=== PATIENT | female | born 1955 | race Two or more races ===

== ENCOUNTER 2016-05-15 12:12 | Emergency (ER) | payer MEDICAID ==
[~2016-05-15] VITALS: Ht 165.1 cm; Wt 59.0 kg
[~2016-05-15 12:12] MED LIST: BENZ0.5T6 GT; DEPAKOTE; MIRT15TA; QUET400T; TEMA30CA5 OR
[2016-05-15 13:03] LABS: Basophils # (auto) 0.1 uL; Basophils % (auto) 0.6 % (0.0-2.0); Eosinophils # (auto) 0.1 uL; Eosinophils % (auto) 1.1 % (0.0-7.0); Hematocrit 41.4 % (36.0-46.0); Hemoglobin 12.9 g/dL (12.2-16.2); Lymphocytes % (auto) 20.7 % (10.0-50.0); Mean Corpuscular Hemoglobin 29.1 pg (28.0-32.0); Mean Corpuscular Hgb Conc. 31.1 g/dL (32.0-36.0); Mean Corpuscular Volume 93.5 fL (80.0-100.0); Monocytes # (auto) 0.6 uL; Monocytes % (auto) 6.1 % (0.0-12.0); Neutrophils % (auto) 71.5 % (37.0-80.0); Platelet Count (auto) 394 10^3/uL (140-450); Red Cell Distribution Width 14.7 % (11.6-16.0); White Blood Cell 9.8 10^3/uL (4.4-10.8)
[2016-05-15 13:12] LABS: Albumin 3.6 g/dL (3.4-5.0); BUN/Creatinine Ratio 21.5; Bilirubin, Total 0.2 mg/dL (0.2-1.0); Calcium 9.9 mg/dL (8.5-10.1); Potassium 3.9 mmol/L (3.5-5.1)
[2016-05-15] MEDS ORDERED: SODIUM CHLORIDE 0.9% 500 ML IVB ONE (15:43)
[2016-05-15] MEDS ORDERED: KETOROLAC TROMETH 30 MG/ML 1ML VIAL IV ONE (15:45)
[2016-05-15] MEDS ORDERED: ALPRAZolam 0.5 MG TAB PO ONE (15:45)
[2016-05-15 16:38] LABS: Magnesium 2.6 mg/dL (1.6-2.6)
[2016-05-15 17:27] LABS: INR 0.99 (0.9-1.15); Prothrombin Time 10.2 sec (9.37-12.3)
[2016-05-15 19:14] VITALS: BP 136/78
== END 2016-05-15 20:46 | disposition home or self-care (01) ==
LOC: EDBD 12:12 → ER 12:16
DX: F41.9 Anxiety disorder, unspecified (principal); M54.5 Low back pain; F17.210 Nicotine dependence, cigarettes, uncomplicated; I25.2 Old myocardial infarction; Z79.899 Other long term (current) drug therapy; Z88.0 Allergy status to penicillin
CPT/HCPCS: 36415; 74176; 80053; 82150; 83690; 83735; 84484; 85025; 85610; 85730; 93005; 94761; 96361; 96374; 99285; J1885

== ENCOUNTER 2016-12-16 07:51 | Emergency (ER) | payer MEDICAID ==
[~2016-12-16] VITALS: Ht 160 cm; Wt 46.3 kg
[2016-12-16] MEDS ORDERED: SODIUM CHLORIDE 0.9% 1,000 ML IVB ONE (08:03)
[2016-12-16] MEDS ORDERED: LORazepam 2MG/ML-1ML VIAL IV ONE (08:15)
[2016-12-16] MEDS ORDERED: OLANZapine 5 MG TAB PO ONE ×2 (08:15→17:15)
[2016-12-16 09:38] LABS: Basophils # (auto) 0.1 uL; Basophils % (auto) 0.7 % (0.0-2.0); Eosinophils # (auto) 0 uL; Eosinophils % (auto) 0.2 % (0.0-7.0); Hematocrit 41.3 % (36.0-46.0); Hemoglobin 13.7 g/dL (12.2-16.2); Lymphocytes # (auto) 1.8 uL; Lymphocytes % (auto) 14.9 % (10.0-50.0); Mean Corpuscular Hemoglobin 31.8 pg (28.0-32.0); Mean Corpuscular Hgb Conc. 33.2 g/dL (32.0-36.0); Mean Corpuscular Volume 95.7 fL (80.0-100.0); Mean Platelet Volume 7.8 fL (7.4-10.4); Monocytes # (auto) 0.9 uL; Monocytes % (auto) 7.7 % (0.0-12.0); Neutrophils # (auto) 9.3 uL; Neutrophils % (auto) 76.5 % (37.0-80.0); Nucleated Red Blood Cells % 0.1 %; Platelet Count (auto) 345 10^3/uL (140-450); Red Cell Distribution Width 14.5 % (11.6-16.0); White Blood Cell 12.2 10^3/uL (4.4-10.8)
[2016-12-16 10:02] LABS: BUN/Creatinine Ratio 23.4; Calcium 9.8 mg/dL (8.5-10.1); Magnesium 2.5 mg/dL (1.6-2.6); Potassium 4.1 mmol/L (3.5-5.1)
[2016-12-16 10:05] LABS: Bilirubin, Total 0.3 mg/dL (0.2-1.0)
[2016-12-16 10:55] LABS: Urine RBC None Seen /hpf (0 - 4)
[2016-12-16 11:14] LABS: Urine Bilirubin Negative (Negative); Urine Blood Negative /uL (Negative); Urine Color Yellow (Yellow); Urine Glucose Normal (Normal); Urine Hyaline Cast FEW /lpf (0 - 2); Urine Ketone Negative (Negative); Urine Mucus FEW (None Seen); Urine Nitrite Negative (Negative); Urine pH 5.5 (5.0-8.0)
[2016-12-16] MEDS ORDERED: ACETAMINOPHEN 325 MG TAB PO ONE (17:15)
[2016-12-17 09:30] VITALS: BP 127/73
== END 2016-12-17 09:38 | disposition home or self-care (01) ==
LOC: EDBD 07:51 → ER 07:51
DX: R41.82 Altered mental status, unspecified (principal); G92 Toxic encephalopathy; F24 Shared psychotic disorder; F20.9 Schizophrenia, unspecified
CPT/HCPCS: 36415; 70450; 71010; 80053; 80307; 81001; 83735; 84443; 85025; 93005; 96361; 96374; 99285; J2060; J7030

== ENCOUNTER 2017-06-16 15:59 | Inpatient (IN) | payer MEDICAID ==
[~2017-06-16] VITALS: Ht 165.1 cm; Wt 65.5 kg
[2017-06-16 17:46] LABS: Albumin 2.2 g/dL (3.4-5.0); Amylase 22 U/L (25-115); Anion Gap 8 (5-15); Blood Urea Nitrogen 29 mg/dL (7-18); Carbon Dioxide 27 mmol/L (21-32); Chloride 100 mmol/L (98-107); Glucose 98 mg/dL (74-106); Lipase 64 U/L (73-393); Magnesium 2.5 mg/dL (1.6-2.6); Potassium 3.8 mmol/L (3.5-5.1); Sodium 135 mmol/L (136-145)
[2017-06-16 17:48] LABS: Alanine Aminotransferase 124 U/L (13-56); Aspartate Aminotransferase 187 U/L (15-37); BUN/Creatinine Ratio 31.9; GFR African American 81 mL/min; GFR Non-African American 67 mL/min
[2017-06-16 17:54] LABS: Alkaline Phosphatase 165 U/L (45-117); Bilirubin, Total 0.3 mg/dL (0.2-1.0)
[2017-06-16 18:30] LABS: INR 1.04 (0.9-1.15); Partial Thromboplastin Time 29.6 sec (22.64-33.71); Prothrombin Time 11.3 sec (9.37-12.3)
[2017-06-16 19:29] LABS: Hematocrit 37.2 % (36.0-46.0); Hemoglobin 12.8 g/dL (12.2-16.2); Mean Corpuscular Hemoglobin 31.6 pg (28.0-32.0); Mean Corpuscular Hgb Conc. 34.4 g/dL (32.0-36.0); Mean Corpuscular Volume 91.8 fL (80.0-100.0); Platelet Count (auto) 303 10^3/uL (140-450); Red Blood Cells 4.06 10^6/uL (4.0-5.20); Red Cell Distribution Width 14.7 % (11.8-14.3)
[2017-06-16 19:44] LABS: Basophils % (manual) 0 (0.0-2.0); Eosinophils % (manual) 0 (0-7)
[2017-06-16 19:45] LABS: Blast Cells 0; Promyelocytes % 0; Reactive Lymphocytes 0
[2017-06-16 21:30] LABS: Band Neutrophils % (manual) 2; Lymphocytes % (manual) 11 (10.0-50.0); Monocytes % (manual) 6 (0-12); Myelocytes % 9
[2017-06-16 21:31] LABS: Metamyelocytes % 12
[2017-06-17] MEDS ORDERED: NALBUPHINE HCL 10 MG/1ml INJECTION IV ONE (04:00)
[2017-06-17] MEDS ORDERED: ONDANSETRON HCL 4 MG/2 ML VIAL IV ONE (04:00)
[2017-06-17] MEDS ORDERED: FAMOTIDINE (10MG/ML) 2ML VL IV ONE (04:00)
[2017-06-17 05:17] LABS: Urine Bacteria NONE SEEN /hpf (None Seen); Urine Blood Negative /uL (Negative); Urine Hyaline Cast FEW /lpf (0 - 2); Urine Mucus FEW (None Seen); Urine Specific Gravity 1.024 (1.001-1.035); Urine WBC 2 /hpf (0 - 5)
[2017-06-17] MEDS ORDERED: SODIUM CHLORIDE 0.9% 1,000 ML IV ONE (05:45)
[2017-06-17] MEDS ORDERED: cefTRIAXone 1GM/10ml IVPUSH 10 ML IV ONE (05:45)
[2017-06-17] MEDS ORDERED: metroNIDAZOLE 500MG/100ML 100 ML IV ONE (05:45)
[2017-06-17] MEDS ORDERED: TEMAZEPAM 15 MG CAP PO PRN (06:15)
[2017-06-17] MEDS ORDERED: ONDANSETRON HCL 4 MG/2 ML VIAL IV PRN (06:15)
[2017-06-17] MEDS ORDERED: ACETAMINOPHEN 325 MG TAB PO PRN (06:15)
[2017-06-17] MEDS ORDERED: HYDROcodone-ACET 5/325MG TAB PO PRN (06:15)
[2017-06-17] MEDS ORDERED: cefTRIAXone 1GM/10ml IVPUSH 10 ML IV SCH (06:30)
[2017-06-17 06:48] LABS: Alcohol, Urine < 3.0 mg/dL (0-5); Amphetamine Screen, Urine NEGATIVE (NEGATIVE); Barbiturate Scree,Urine NEGATIVE (NEGATIVE); Benzodiazephine Screen, Urine POSITIVE (NEGATIVE); Cannabinoid Screen, Urine NEGATIVE (NEGATIVE); Cocaine Screen, Urine NEGATIVE (NEGATIVE); Opiate Scree,Urine POSITIVE (NEGATIVE); Phencyclidine Screen, Urine NEGATIVE (NEGATIVE)
[2017-06-17] MEDS: SODIUM CHLORIDE 0.9% 1,000 ML IV SCH ×2 (07:03→19:34)
[2017-06-17] MEDS ORDERED: VANCOMYCIN 1GM/250ML 250 ML IV ONE (07:15)
[2017-06-17 08:31] VITALS: BP 128/70
[2017-06-17 08:36] VITALS: BP 128/70
[2017-06-17] MEDS ORDERED: AZITHROMYCIN 500MG/ 250ML 250 ML IV SCH (10:00)
[2017-06-17] MEDS: PANTOPRAZOLE 40 MG/10 ML VIAL IV SCH (10:20)
[2017-06-17] MEDS: DOCUSATE SOD 100 MG CAP PO SCH ×2 (10:20→22:00)
[2017-06-17] MEDS: ENOXAPARIN SOD 40 MG/0.4 ML SYRINGE SC SCH (10:20)
[2017-06-17] MEDS: MORPHINE SULFATE 4 MG/ML SYR/VIAL IV PRN ×2 (12:01→20:44)
[2017-06-17 12:11] LABS: Hematocrit 36.9 % (36.0-46.0); Hemoglobin 12.4 g/dL (12.2-16.2); Mean Corpuscular Hemoglobin 30.9 pg (28.0-32.0); Mean Corpuscular Hgb Conc. 33.5 g/dL (32.0-36.0); Mean Corpuscular Volume 92.3 fL (80.0-100.0); Platelet Count (auto) 329 10^3/uL (140-450); Red Cell Distribution Width 15.1 % (11.8-14.3); White Blood Cell 23.7 10^3/uL (4.4-10.8)
[2017-06-17 12:37] LABS: Basophils % (manual) 0 (0.0-2.0); Promyelocytes % 0; Reactive Lymphocytes 0
[2017-06-17 12:43] VITALS: BP 140/78
[2017-06-17] MEDS: HYDROcodone-ACET 5/325MG TAB PO PRN (12:55)
[2017-06-17 12:57] LABS: Alanine Aminotransferase 96 U/L (13-56); Albumin 1.9 g/dL (3.4-5.0); Alkaline Phosphatase 141 U/L (45-117); Anion Gap 9 (5-15); Aspartate Aminotransferase 138 U/L (15-37); Bilirubin, Direct < 0.1 mg/dL (0-0.2); Bilirubin, Total 0.3 mg/dL (0.2-1.0); Blood Urea Nitrogen 20 mg/dL (7-18); Calcium 8.5 mg/dL (8.5-10.1); Carbon Dioxide 28 mmol/L (21-32); Chloride 102 mmol/L (98-107); Creatine Kinase IFCC 1766 U/L (26-192); GFR African American 147 mL/min; GFR Non-African American 122 mL/min; Glucose 92 mg/dL (74-106); Magnesium 2.4 mg/dL (1.6-2.6); Potassium 3.9 mmol/L (3.5-5.1); Sodium 139 mmol/L (136-145); Total Protein 6.1 g/dL (6.4-8.2)
[2017-06-17] MEDS ORDERED: metroNIDAZOLE 500MG/100ML 100 ML IV SCH (14:00)
[2017-06-17 14:53] LABS: Band Neutrophils % (manual) 9; Blast Cells 1; Eosinophils % (manual) 3 (0-7); Lymphocytes % (manual) 19 (10.0-50.0); Metamyelocytes % 6; Monocytes % (manual) 13 (0-12); Myelocytes % 11
[2017-06-17] MEDS ORDERED: MIRT15TA3 PO (15:10)
[2017-06-17] MEDS ORDERED: HYDR-4683 PO ×2 (15:10)
[2017-06-17] MEDS ORDERED: DIVA500T59 PO (15:10)
[2017-06-17] MEDS ORDERED: DIPH25CA6 PO (15:10)
[2017-06-17] MEDS ORDERED: ALPR0.254 PO (15:10)
[2017-06-17] MEDS ORDERED: HAL5T PO (15:10)
[2017-06-17] MEDS ORDERED: CYCL1TAB18 PO (15:10)
[2017-06-17] MEDS ORDERED: QUET150T2 PO (15:10)
[2017-06-17] MEDS ORDERED: TEMA30CA PO (15:10)
[2017-06-17 17:00] VITALS: BP 137/70
[2017-06-17] MEDS: TEMAZEPAM 15 MG CAP PO PRN (20:50)
[2017-06-17] MEDS ORDERED: SODIUM CHLORIDE 0.9% 2,000 ML IV ONE (21:30)
[2017-06-17 22:00] VITALS: BP 144/77
[2017-06-17] MEDS ORDERED: QUEtiapine FUMARATE 100 MG TAB PO SCH (22:00)
[2017-06-18] MEDS: SODIUM CHLORIDE 0.9% 1,000 ML IV SCH ×5 (00:30→17:10)
[2017-06-18 05:00] VITALS: BP 120/76
[2017-06-18 07:24] LABS: Hematocrit 34.3 % (36.0-46.0); Hemoglobin 11.2 g/dL (12.2-16.2); Mean Corpuscular Hemoglobin 30.6 pg (28.0-32.0); Mean Corpuscular Hgb Conc. 32.6 g/dL (32.0-36.0); Mean Corpuscular Volume 94.1 fL (80.0-100.0); Platelet Count (auto) 353 10^3/uL (140-450); Red Blood Cells 3.65 10^6/uL (4.0-5.20); Red Cell Distribution Width 15.3 % (11.8-14.3); White Blood Cell 21.6 10^3/uL (4.4-10.8)
[2017-06-18 07:35] LABS: Albumin 1.7 g/dL (3.4-5.0); Bilirubin, Total 0.2 mg/dL (0.2-1.0); Calcium 7.8 mg/dL (8.5-10.1); Potassium 3.8 mmol/L (3.5-5.1); Total Protein 5.4 g/dL (6.4-8.2)
[2017-06-18 08:15] LABS: Basophils % (manual) 0 (0.0-2.0); Blast Cells 0; Promyelocytes % 0
[2017-06-18 09:00] VITALS: BP 112/47
[2017-06-18] MEDS ORDERED: cefTRIAXone 1GM/10ml IVPUSH 10 ML IV SCH (09:00)
[2017-06-18 09:09] LABS: Band Neutrophils % (manual) 14; Eosinophils % (manual) 1 (0-7); Lymphocytes % (manual) 23 (10.0-50.0); Metamyelocytes % 7; Monocytes % (manual) 9 (0-12); Myelocytes % 7; Reactive Lymphocytes 3
[2017-06-18] MEDS: MORPHINE SULFATE 4 MG/ML SYR/VIAL IV PRN ×2 (09:56→17:18)
[2017-06-18] MEDS ORDERED: LEVOFLOXACIN 500MG 100 ML IV SCH (10:00)
[2017-06-18] MEDS: PANTOPRAZOLE 40 MG/10 ML VIAL IV SCH (10:03)
[2017-06-18] MEDS: ENOXAPARIN SOD 40 MG/0.4 ML SYRINGE SC SCH (10:06)
[2017-06-18] MEDS: DOCUSATE SOD 100 MG CAP PO SCH ×2 (10:06→22:00)
[2017-06-18] MEDS ORDERED: SODIUM CHLORIDE 0.9% 1,000 ML IV ONE (11:30)
[2017-06-18] MEDS ORDERED: VANCOMYCIN PER PHARMACY 0 MG IV SCH (12:30)
[2017-06-18] MEDS: HYDROcodone-ACET 5/325MG TAB PO PRN (12:42)
[2017-06-18 13:00] VITALS: BP 140/82
[2017-06-18] MEDS ORDERED: VANCOMYCIN 1GM/250ML 250 ML IV ONE (13:00)
[2017-06-18 17:00] VITALS: BP 147/81
[2017-06-18] MEDS ORDERED: QUEtiapine FUMARATE 100 MG TAB PO SCH ×2 (18:00)
[2017-06-18 22:00] VITALS: BP 143/80
[2017-06-19] MEDS: SODIUM CHLORIDE 0.9% 1,000 ML IV SCH ×4 (00:10→20:10)
[2017-06-19] MEDS: VANCOMYCIN 1GM/250ML 250 ML IV SCH ×3 (00:15→19:48)
[2017-06-19] MEDS: MORPHINE SULFATE 4 MG/ML SYR/VIAL IV PRN ×4 (00:33→20:49)
[2017-06-19] MEDS: TEMAZEPAM 15 MG CAP PO PRN ×2 (01:21→21:36)
[2017-06-19] MEDS: HYDROcodone-ACET 5/325MG TAB PO PRN ×3 (02:36→17:22)
[2017-06-19 05:51] VITALS: BP 132/74
[2017-06-19 06:21] LABS: INR 1.01 (0.9-1.15); Partial Thromboplastin Time 29.6 sec (22.64-33.71)
[2017-06-19 06:22] LABS: Hematocrit 34.2 % (36.0-46.0); Hemoglobin 11.3 g/dL (12.2-16.2); Mean Corpuscular Hemoglobin 30.7 pg (28.0-32.0); Mean Corpuscular Hgb Conc. 33.1 g/dL (32.0-36.0); Mean Corpuscular Volume 92.8 fL (80.0-100.0); Platelet Count (auto) 415 10^3/uL (140-450); Red Blood Cells 3.68 10^6/uL (4.0-5.20); Red Cell Distribution Width 15.3 % (11.8-14.3); White Blood Cell 19.2 10^3/uL (4.4-10.8)
[2017-06-19 06:31] LABS: Basophils % (manual) 0 (0.0-2.0); Eosinophils % (manual) 0 (0-7)
[2017-06-19 06:32] LABS: Blast Cells 0; Promyelocytes % 0
[2017-06-19 06:54] LABS: Alanine Aminotransferase 64 U/L (13-56); Albumin 1.8 g/dL (3.4-5.0); Alkaline Phosphatase 113 U/L (45-117); Anion Gap 6 (5-15); Aspartate Aminotransferase 50 U/L (15-37); Bilirubin, Direct < 0.1 mg/dL (0-0.2); Bilirubin, Total 0.2 mg/dL (0.2-1.0); Blood Urea Nitrogen 9 mg/dL (7-18); Calcium 7.9 mg/dL (8.5-10.1); Carbon Dioxide 29 mmol/L (21-32); Chloride 106 mmol/L (98-107); Creatine Kinase IFCC 408 U/L (26-192); GFR African American 161 mL/min; GFR Non-African American 133 mL/min; Glucose 89 mg/dL (74-106); Magnesium 1.9 mg/dL (1.6-2.6); Potassium 3.8 mmol/L (3.5-5.1); Sodium 141 mmol/L (136-145); Total Protein 5.4 g/dL (6.4-8.2)
[2017-06-19 08:00] VITALS: BP 139/79
[2017-06-19] MEDS: PANTOPRAZOLE 40 MG/10 ML VIAL IV SCH (08:21)
[2017-06-19] MEDS: ENOXAPARIN SOD 40 MG/0.4 ML SYRINGE SC SCH (08:44)
[2017-06-19] MEDS: DOCUSATE SOD 100 MG CAP PO SCH ×2 (08:44→21:36)
[2017-06-19 09:00] VITALS: BP 139/79
[2017-06-19] MEDS: LEVOFLOXACIN 500MG 100 ML IV SCH (11:22)
[2017-06-19 13:00] VITALS: BP 161/76
[2017-06-19 13:53] LABS: Monocytes % (manual) 13 (0-12)
[2017-06-19 13:55] LABS: Band Neutrophils % (manual) 8; Lymphocytes % (manual) 21 (10.0-50.0); Metamyelocytes % 5; Myelocytes % 4; Reactive Lymphocytes 1
[2017-06-19 17:00] VITALS: BP 141/82
[2017-06-19] MEDS: QUEtiapine FUMARATE 100 MG TAB PO SCH (18:18)
[2017-06-19 21:30] VITALS: BP 155/76
[2017-06-19] MEDS ORDERED: hydrALAZINE HCL 20 MG/ML VL IV PRN (23:00)
[2017-06-20] MEDS: SODIUM CHLORIDE 0.9% 1,000 ML IV SCH ×3 (03:04→13:59)
[2017-06-20] MEDS: MORPHINE SULFATE 4 MG/ML SYR/VIAL IV PRN ×3 (03:04→15:03)
[2017-06-20 05:00] VITALS: BP 150/89
[2017-06-20] MEDS: VANCOMYCIN 1GM/250ML 250 ML IV SCH (05:35)
[2017-06-20 06:45] LABS: Hemoglobin 12.1 g/dL (12.2-16.2); Red Cell Distribution Width 15.2 % (11.8-14.3)
[2017-06-20 06:49] LABS: Mean Corpuscular Hemoglobin 31.3 pg (28.0-32.0); Mean Corpuscular Hgb Conc. 33.7 g/dL (32.0-36.0); Mean Corpuscular Volume 92.7 fL (80.0-100.0); Platelet Count (auto) 502 10^3/uL (140-450); Red Blood Cells 3.88 10^6/uL (4.0-5.20); White Blood Cell 18.7 10^3/uL (4.4-10.8)
[2017-06-20 06:57] LABS: Basophils % (manual) 0 (0.0-2.0); Blast Cells 0; Promyelocytes % 0
[2017-06-20 07:23] LABS: Alanine Aminotransferase 51 U/L (13-56); Albumin 1.9 g/dL (3.4-5.0); Alkaline Phosphatase 102 U/L (45-117); Anion Gap 7 (5-15); Aspartate Aminotransferase 34 U/L (15-37); BUN/Creatinine Ratio 14.6; Bilirubin, Direct < 0.1 mg/dL (0-0.2); Bilirubin, Total 0.2 mg/dL (0.2-1.0); Blood Urea Nitrogen 7 mg/dL (7-18); Calcium 8.3 mg/dL (8.5-10.1); Carbon Dioxide 29 mmol/L (21-32); Chloride 104 mmol/L (98-107); Creatine Kinase IFCC 205 U/L (26-192); GFR African American 169 mL/min; GFR Non-African American 139 mL/min; Glucose 110 mg/dL (74-106); Potassium 3.7 mmol/L (3.5-5.1); Sodium 140 mmol/L (136-145); Total Protein 5.7 g/dL (6.4-8.2)
[2017-06-20 08:00] VITALS: BP 153/79
[2017-06-20 08:10] LABS: Band Neutrophils % (manual) 9; Eosinophils % (manual) 2 (0-7); Lymphocytes % (manual) 22 (10.0-50.0); Metamyelocytes % 4; Monocytes % (manual) 8 (0-12); Myelocytes % 4
[2017-06-20 08:11] LABS: Reactive Lymphocytes 1
[2017-06-20 09:00] VITALS: BP 153/79
[2017-06-20] MEDS: ENOXAPARIN SOD 40 MG/0.4 ML SYRINGE SC SCH (09:03)
[2017-06-20] MEDS: PANTOPRAZOLE 40 MG/10 ML VIAL IV SCH (09:04)
[2017-06-20] MEDS: DOCUSATE SOD 100 MG CAP PO SCH (09:04)
[2017-06-20] MEDS: LEVOFLOXACIN 500MG 100 ML IV SCH (10:51)
[2017-06-20] MEDS: HYDROcodone-ACET 5/325MG TAB PO PRN ×2 (11:01→17:14)
[2017-06-20 13:00] VITALS: BP 151/85
[2017-06-20] MEDS ORDERED: VANCOMYCIN 1GM/250ML 250 ML IV SCH (14:00)
[2017-06-20 17:00] VITALS: BP 136/80
[2017-06-20] MEDS: QUEtiapine FUMARATE 100 MG TAB PO SCH (18:04)
== END 2017-06-20 21:15 | DRG 720 ==
LOC: ER 15:59 → EDBD 15:59 → OVERFLOW 16:00 → WEST WING 06-17 08:06
PROVIDERS: ADMIT Nurse Practitioner; ATTEND Internal Medicine
DX: A41.1 Sepsis due to other specified staphylococcus (principal); E43 Unspecified severe protein-calorie malnutrition; J15.29 Pneumonia due to other staphylococcus; M62.82 Rhabdomyolysis; E86.0 Dehydration; J44.0 Chronic obstructive pulmonary disease with (acute) lower respiratory infection; F20.9 Schizophrenia, unspecified; G47.00 Insomnia, unspecified; J98.11 Atelectasis; F31.30 Bipolar disorder, current episode depressed, mild or moderate severity, unspecified; K59.00 Constipation, unspecified; X58.XXXA Exposure to other specified factors, initial encounter; T42.6X5A Adverse effect of other antiepileptic and sedative-hypnotic drugs, initial encounter; R09.02 Hypoxemia; Z86.73 Personal history of transient ischemic attack (TIA), and cerebral infarction without residual deficits; Z91.81 History of falling; Z88.0 Allergy status to penicillin; Y92.89 Other specified places as the place of occurrence of the external cause; Y93.89 Activity, other specified; Y99.8 Other external cause status
CPT/HCPCS: 36415; 36600; 71045; 74176; 76705; 80048; 80053; 80076; 80202; 80307; 81001; 82150; 82550; 82805; 83605; 83690; 83735; 84484; 85007; 85027; 85060; 85610; 85730; 87040; 87077; 87186; 93005; 96365; 96375; 97116; 97163; 97530; C9113; J1956; J2405; J3490

== ENCOUNTER 2017-11-28 00:54 | Emergency (ER) | payer MEDICAID ==
[~2017-11-28] VITALS: Ht 165.1 cm; Wt 65.8 kg
[~2017-11-28 00:54] MED LIST changes: +ALPR0.254 PO; -BENZ0.5T6 GT; +CYCL1TAB18 PO; -DEPAKOTE; +DIPH25CA6 PO; +DIVA500T59 PO; +HAL5T PO; +HYDR-4683 PO; -MIRT15TA; +MIRT15TA3 PO; +QUET150T2 PO; -QUET400T; +TEMA30CA PO; -TEMA30CA5 OR
[2017-11-28 00:59] VITALS: BP 111/65
== END 2017-11-28 06:07 | disposition home or self-care (01) ==
LOC: EDBD 00:54 → ER 01:02
DX: S93.401A Sprain of unspecified ligament of right ankle, initial encounter (principal); J40 Bronchitis, not specified as acute or chronic; T43.291A Poisoning by other antidepressants, accidental (unintentional), initial encounter; J44.9 Chronic obstructive pulmonary disease, unspecified; Z88.0 Allergy status to penicillin; Z86.73 Personal history of transient ischemic attack (TIA), and cerebral infarction without residual deficits; W01.0XXA Fall on same level from slipping, tripping and stumbling without subsequent striking against object, initial encounter; Y93.01 Activity, walking, marching and hiking; Y92.090 Kitchen in other non-institutional residence as the place of occurrence of the external cause; Y99.8 Other external cause status; Y92.9 Unspecified place or not applicable
CPT/HCPCS: 73610

== ENCOUNTER 2017-12-19 13:38 | Emergency (ER) | payer MEDICAID ==
[~2017-12-19] VITALS: Ht 167.6 cm; Wt 65.8 kg
[2017-12-19] MEDS ORDERED: SODIUM CHLORIDE 0.9% 1,000 ML IVB ONE (14:20)
[2017-12-19 15:12] LABS: Basophils # (auto) 0.1 uL; Basophils % (auto) 0.9 % (0.0-2.0); Eosinophils # (auto) 0 uL; Eosinophils % (auto) 0.1 % (0.0-7.0); Hematocrit 46.7 % (36.0-46.0); Hemoglobin 15.6 g/dL (12.2-16.2); Lymphocytes # (auto) 1.3 uL; Lymphocytes % (auto) 15.4 % (10.0-50.0); Mean Corpuscular Hemoglobin 30.4 pg (28.0-32.0); Mean Corpuscular Hgb Conc. 33.5 g/dL (32.0-36.0); Mean Corpuscular Volume 90.8 fL (80.0-100.0); Monocytes # (auto) 0.3 uL; Neutrophils % (auto) 80.6 % (37.0-80.0); Platelet Count (auto) 337 10^3/uL (140-450); Red Blood Cells 5.14 10^6/uL (4.0-5.20); White Blood Cell 8.7 10^3/uL (4.4-10.8)
[2017-12-19 15:54] LABS: Anion Gap 8 (5-15); Blood Urea Nitrogen 25 mg/dL (7-18); Carbon Dioxide 29 mmol/L (21-32); Chloride 107 mmol/L (98-107); Potassium 4.1 mmol/L (3.5-5.1); Sodium 144 mmol/L (136-145)
[2017-12-19 15:57] LABS: Alanine Aminotransferase 17 U/L (13-56); Aspartate Aminotransferase 13 U/L (15-37); BUN/Creatinine Ratio 36.8; GFR African American 112 mL/min; GFR Non-African American 93 mL/min; Glucose 112 mg/dL (74-106)
[2017-12-19 16:03] LABS: Alkaline Phosphatase 115 U/L (45-117); Bilirubin, Total 0.5 mg/dL (0.2-1.0); Total Protein 8.2 g/dL (6.4-8.2)
[2017-12-19 16:14] LABS: Blood Alcohol < 3.0 mg/dL (0-5)
[2017-12-19 16:40] LABS: Salicylate 3.9 mg/dL (2.8-20.0)
[2017-12-19 16:41] LABS: Acetaminophen < 2.0 ug/mL (10-30)
[2017-12-19 17:42] LABS: Urine Bacteria NONE SEEN /hpf (None Seen); Urine Blood Negative /uL (Negative); Urine Mucus FEW (None Seen); Urine Specific Gravity 1.027 (1.001-1.035); Urine WBC 1 /hpf (0 - 5)
[2017-12-19 17:51] LABS: Alcohol, Urine < 3.0 mg/dL (0-5); Amphetamine Screen, Urine NEGATIVE (NEGATIVE); Barbiturate Scree,Urine NEGATIVE (NEGATIVE); Benzodiazephine Screen, Urine POSITIVE (NEGATIVE); Cocaine Screen, Urine NEGATIVE (NEGATIVE); Opiate Scree,Urine NEGATIVE (NEGATIVE); Phencyclidine Screen, Urine NEGATIVE (NEGATIVE)
[2017-12-19 17:57] LABS: Cannabinoid Screen, Urine NEGATIVE (NEGATIVE)
[2017-12-19] MEDS ORDERED: ONDANSETRON HCL 4 MG/2 ML VIAL ONE (21:15)
[2017-12-19] MEDS ORDERED: ONDANSETRON HCL 4 MG/2 ML VIAL IV ONE (23:15)
[2017-12-19] MEDS ORDERED: KETOROLAC TROMETH 30 MG/ML 1ML VIAL IV ONE (23:15)
[2017-12-20] MEDS ORDERED: KETOROLAC TROMETH 30 MG/ML 1ML VIAL IV ONE (08:00)
[2017-12-20] MEDS ORDERED: LORazepam 0.5 MG TAB PO PRN (08:00)
[2017-12-20 19:10] VITALS: BP 144/61
== END 2017-12-20 19:20 | disposition short-term general hospital (02) ==
LOC: EDBD 13:38 → ER 13:38
DX: T42.4X2A Poisoning by benzodiazepines, intentional self-harm, initial encounter (principal); F41.9 Anxiety disorder, unspecified; F31.9 Bipolar disorder, unspecified; J44.9 Chronic obstructive pulmonary disease, unspecified; I10 Essential (primary) hypertension; Y92.9 Unspecified place or not applicable
CPT/HCPCS: 36415; 71045; 80053; 80307; 80320; 80329; 81001; 83735; 85025; 93005; 94761; 96374; 96375; 96376; 99285; J1885; J2405; J7030

== ENCOUNTER 2018-02-06 15:54 | Emergency (ER) | payer MEDICAID ==
[~2018-02-06] VITALS: Ht 157.5 cm; Wt 54.4 kg
[2018-02-06 16:44] LABS: Basophils # (auto) 0.1 uL; Basophils % (auto) 1.2 % (0.0-2.0); Eosinophils # (auto) 0.2 uL; Eosinophils % (auto) 2.1 % (0.0-7.0); Hematocrit 44.7 % (36.0-46.0); Hemoglobin 14.7 g/dL (12.2-16.2); Lymphocytes % (auto) 25.5 % (10.0-50.0); Mean Corpuscular Hemoglobin 29.5 pg (28.0-32.0); Mean Corpuscular Volume 89.6 fL (80.0-100.0); Monocytes # (auto) 0.8 uL; Monocytes % (auto) 6.5 % (0.0-12.0); Neutrophils # (auto) 7.5 uL; Neutrophils % (auto) 64.7 % (37.0-80.0); Platelet Count (auto) 348 10^3/uL (140-450); Red Blood Cells 4.99 10^6/uL (4.0-5.20); Red Cell Distribution Width 13.2 % (11.8-14.3); White Blood Cell 11.6 10^3/uL (4.4-10.8)
[2018-02-06 16:50] VITALS: BP 163/115
[2018-02-06 17:08] LABS: Alanine Aminotransferase 16 U/L (13-56); Albumin 3.7 g/dL (3.4-5.0); Anion Gap 12 (5-15); Aspartate Aminotransferase 15 U/L (15-37); BUN/Creatinine Ratio 23.9; Blood Urea Nitrogen 26 mg/dL (7-18); Calcium 9.5 mg/dL (8.5-10.1); Carbon Dioxide 22 mmol/L (21-32); Chloride 101 mmol/L (98-107); GFR African American 65 mL/min; GFR Non-African American 54 mL/min; Glucose 81 mg/dL (74-106); Sodium 135 mmol/L (136-145)
[2018-02-06 17:13] LABS: Alkaline Phosphatase 98 U/L (45-117); Bilirubin, Total 0.4 mg/dL (0.2-1.0); Total Protein 7.4 g/dL (6.4-8.2)
[2018-02-06 17:26] LABS: Urine Bacteria NONE SEEN /hpf (None Seen); Urine Blood Negative /uL (Negative); Urine Hyaline Cast MANY /lpf (0 - 2); Urine Mucus FEW (None Seen); Urine Specific Gravity 1.024 (1.001-1.035); Urine WBC 4 /hpf (0 - 5)
== END 2018-02-06 18:08 | disposition home or self-care (01) ==
LOC: EDBD 15:54 → ER 16:00
DX: R53.1 Weakness (principal); F41.9 Anxiety disorder, unspecified; R11.2 Nausea with vomiting, unspecified; R19.7 Diarrhea, unspecified; J44.9 Chronic obstructive pulmonary disease, unspecified; I10 Essential (primary) hypertension; M06.9 Rheumatoid arthritis, unspecified; F17.210 Nicotine dependence, cigarettes, uncomplicated; Z88.0 Allergy status to penicillin; Z88.6 Allergy status to analgesic agent; Z79.899 Other long term (current) drug therapy
CPT/HCPCS: 36415; 80053; 81001; 84484; 85025; 93005

== ENCOUNTER 2018-02-08 17:28 | Emergency (ER) | payer MEDICAID ==
[~2018-02-08] VITALS: Ht 165.1 cm; Wt 54.4 kg
[2018-02-08 17:45] VITALS: BP 134/80
[2018-02-08 18:20] LABS: Basophils # (auto) 0.1 uL; Basophils % (auto) 1.2 % (0.0-2.0); Eosinophils # (auto) 0.3 uL; Eosinophils % (auto) 4.1 % (0.0-7.0); Hemoglobin 15.1 g/dL (12.2-16.2); Lymphocytes # (auto) 3.5 uL; Lymphocytes % (auto) 40.8 % (10.0-50.0); Mean Corpuscular Hemoglobin 29.4 pg (28.0-32.0); Mean Corpuscular Hgb Conc. 32.8 g/dL (32.0-36.0); Mean Corpuscular Volume 89.7 fL (80.0-100.0); Monocytes # (auto) 0.7 uL; Monocytes % (auto) 8.7 % (0.0-12.0); Neutrophils # (auto) 3.8 uL; Neutrophils % (auto) 45.2 % (37.0-80.0); Nucleated Red Blood Cells % 0.1 %; Platelet Count (auto) 351 10^3/uL (140-450); Red Blood Cells 5.13 10^6/uL (4.0-5.20); Red Cell Distribution Width 13.4 % (11.8-14.3); White Blood Cell 8.4 10^3/uL (4.4-10.8)
[2018-02-08 18:36] LABS: Alanine Aminotransferase 17 U/L (13-56); Albumin 3.9 g/dL (3.4-5.0); Anion Gap 7 (5-15); Aspartate Aminotransferase 14 U/L (15-37); BUN/Creatinine Ratio 25.6; Blood Urea Nitrogen 22 mg/dL (7-18); Calcium 9.4 mg/dL (8.5-10.1); Carbon Dioxide 27 mmol/L (21-32); Chloride 103 mmol/L (98-107); GFR African American 86 mL/min; GFR Non-African American 71 mL/min; Glucose 91 mg/dL (74-106); Potassium 4.1 mmol/L (3.5-5.1); Sodium 137 mmol/L (136-145)
[2018-02-08 18:41] LABS: Alkaline Phosphatase 96 U/L (45-117); Bilirubin, Total 0.3 mg/dL (0.2-1.0); Total Protein 7.6 g/dL (6.4-8.2)
== END 2018-02-08 20:03 | disposition left against medical advice (07) ==
LOC: EDBD 17:28 → ER 17:28
DX: F41.9 Anxiety disorder, unspecified (principal); Z53.21 Procedure and treatment not carried out due to patient leaving prior to being seen by health care provider
CPT/HCPCS: 36415; 80053; 83735; 84484; 85025; 93005

== ENCOUNTER 2018-07-20 14:33 | Inpatient (IN) | payer MEDICAID | END 2018-07-22 19:45 | disposition home or self-care (01) | LOC: TELE-WESTW 07-21 14:02 → ER 14:33 → TELE 18:20 | DX: I12.9 Hypertensive chronic kidney disease with stage 1 through stage 4 chronic kidney disease, or unspecified chronic kidney disease (principal); I21.4 Non-ST elevation (NSTEMI) myocardial infarction; N17.0 Acute kidney failure with tubular necrosis; R65.10 Systemic inflammatory response syndrome (SIRS) of non-infectious origin without acute organ dysfunction; N18.4 Chronic kidney disease, stage 4 (severe); F31.30 Bipolar disorder, current episode depressed, mild or moderate severity, unspecified; Z91.19 Patient's noncompliance with other medical treatment and regimen; F15.10 Other stimulant abuse, uncomplicated; F41.9 Anxiety disorder, unspecified ==

== ENCOUNTER 2018-10-07 14:00 | Inpatient (IN) | payer MEDICAID ==
[~2018-10-07] VITALS: Ht 165.1 cm; Wt 61.4 kg
[2018-10-07] VITALS (19 sets, daily range): BP systolic 82–158; BP diastolic 47–74
[~2018-10-07 14:00] MED LIST changes: -DIPH25CA6 PO; +GABA100C9 PO; -HAL5T PO; +HYDR-3682 PO; -MIRT15TA3 PO; -QUET150T2 PO; +QUET25TA37 PO; -TEMA30CA PO
[2018-10-07] MEDS ORDERED: KETOROLAC TROMETH 15 mg/ml 1ML VL IV ONE (14:15)
[2018-10-07 15:21] LABS: Albumin 1.6 g/dL (3.4-5.0); Calcium 8.6 mg/dL (8.5-10.1); Magnesium 1.8 mg/dL (1.6-2.6); Potassium 3.6 mmol/L (3.5-5.1)
[2018-10-07 15:25] LABS: BUN/Creatinine Ratio 41.4; Bilirubin, Total 0.4 mg/dL (0.2-1.0); Total Protein 5.8 g/dL (6.4-8.2)
[2018-10-07 15:26] LABS: Hematocrit 27.5 % (36.0-46.0); Hemoglobin 9.2 g/dL (12.2-16.2); Mean Corpuscular Hemoglobin 30.6 pg (28.0-32.0); Mean Corpuscular Hgb Conc. 33.5 g/dL (32.0-36.0); Mean Corpuscular Volume 91.4 fL (80.0-100.0); Platelet Count (auto) 354 10^3/uL (140-450); Red Blood Cells 3.01 10^6/uL (4.0-5.20); Red Cell Distribution Width 15.7 % (11.8-14.3); White Blood Cell 23.1 10^3/uL (4.4-10.8)
[2018-10-07 15:35] LABS: Basophils % (manual) 0 (0.0-2.0); Blast Cells 0; Eosinophils % (manual) 0 (0-7); Promyelocytes % 0; Reactive Lymphocytes 0
[2018-10-07] MEDS ORDERED: VANCOMYCIN PER PHARMACY 0 MG IV SCH (16:15)
[2018-10-07] MEDS ORDERED: ONDANSETRON HCL 4 MG/2 ML VIAL IV PRN (16:15)
[2018-10-07] MEDS ORDERED: VANCOMYCIN 1GM/250ML 250 ML IV ONE (16:15)
[2018-10-07] MEDS ORDERED: MORPHINE SULF INJ 2 MG/ML SYRINGE 1ML IV PRN (16:15)
[2018-10-07] MEDS ORDERED: SODIUM CHLORIDE 0.9% 2,000 ML IV ONE ×2 (16:15→20:00)
[2018-10-07] MEDS ORDERED: metroNIDAZOLE 500MG/100ML 100 ML IV ONE (16:15)
[2018-10-07] MEDS ORDERED: NITROGLYCERIN 0.4 MG SL TAB SL PRN (16:15)
[2018-10-07] MEDS ORDERED: IOHEXOL 300 MG/ML 100ML BOTTLE IJ ONE (16:18)
[2018-10-07] MEDS: MEROPENEM 1GM IVPB 100 ML IV SCH (17:00)
--- NOTE | 2018-10-07 17:12 | NUR ---
PAGED DR Flip MERCEDES/LOW BP PATIENT LOW BLOOD PRESSURE, ASYMPTOMATIC - CONVERSING APPROPRIATELY WITH THIS NURSE AND STAFF. AWAITING RESPONSE.
[2018-10-07] MEDS: HYDROmorphone HCL 2 MG/ML VL IV PRN (17:45)
--- NOTE | 2018-10-07 17:45 | NUR ---
Opening Shift Note Assumed care of patient, awake and alert. No S/S of distress/SOB or pain. Instructed on POC and to call for assist PRN, will continue to monitor for changes Q1hr and PRN. Fall and safety precautions in place.
[2018-10-07] MEDS ORDERED: NOREPINEPHRINE 8 MG/250ML KIT 250 ML IV ONE (18:11)
--- NOTE | 2018-10-07 18:30 | NUR ---
CONTACT DR ESPINOSA UPDATED ON MOST CURRENT ABD/PELVIC CT WITH CONTRAST RESULTS. ORDERS FOR GI CONSULT AND NGT TO LCS RECEIVED. PATIENT CONTINUE NPO. ORDERS WILL BE CARRIED OUT AND ENDORSED TO ONCOMING CAN CONVEYOR FEEDER RN.
[2018-10-07 18:34] LABS: Band Neutrophils % (manual) 1; Lymphocytes % (manual) 4 (10.0-50.0); Metamyelocytes % 1; Monocytes % (manual) 5 (0-12); Myelocytes % 2
--- NOTE | 2018-10-07 19:45 | NUR ---
open note report received from nakul oh. assumed care of female pt. pt is sitting up in bed watching tv. pt is alert and oriented. pt has iv to L wrist 20g, R forearm 20g both are patent, flushed with ns, no ss of redness or swelling. pt abdomen is firm and round. pt states she is having pain in her stomach and that it is very tender. pt has Optifoam on R hip buttock area. L foot is swollen and bruised. pt stated she broke it when she tripped over her couch because of a dog. she said her big toe nail fell off after it happen. pt missing L foot big toe nail. day rn stated pt refused espinoza and ngt. day rn stated that intubation order was discussed with pt for airway protection. bed in lowest position, wheels locked hob 30* side rails up x2. pt educated air conditioning coil assembler light and to use if any assistance is needed. call light within reach, pt in view of rn station. pt verbalized understanding. will continue to care for and monitor.
--- NOTE | 2018-10-07 19:51 | NUR ---
CONTACT HOSPITALIST DR MERCEDES NOTIFIED OF PATIENT'S CURRENT STATUS, HYPOTENSION, ABD/PELVIC CT AND DISCUSSION WITH DR ESPINOSA. DR MERCEDES ALSO AWARE OF PATIENT'S REFUSAL FOR KEARNEY CATHETER AND NGT. DR MERCEDES REQUESTING PATIENT TO BE INTUBATED WITH PULMONARY CONSULT AND NEPHROLOGY CONSULT FOR NO URINE OUTPUT. PATIENT WAS REQUESTING ATIVAN FOR ANXIETY, DR MERCEDES REFUSED STATING "THIS PATIENT IS GOING TO , SHE IS CRITICAL IN SEPTIC SHOCK". ENDORSED CONTINUED CARE TO MACHINE II ENGRAVER RN. CHARGE NURSE AWARE.
[2018-10-07] MEDS: NOREPINEPHRINE 8 MG/250ML KIT 250 ML IV SCH (19:58)
[2018-10-07] MEDS: D5W/SOD CHL 0.45% 1,000 ML IV SCH (20:00)
--- NOTE | 2018-10-07 20:00 | NUR ---
REPORT AND CARE ENDORSED TO RONNIE MALCOLM
[2018-10-07] MEDS ORDERED: ETOMIDATE (2MG/ML) 20ML VIAL IV ONE (20:12)
[2018-10-07] MEDS ORDERED: ROCURONIUM 10MG/ML 10ML VIAL IV ONE (20:12)
[2018-10-07] MEDS ORDERED: SUCCINYLCHOLINE CHLORIDE 20 MG/ML 10ML VIAL IV ONE (20:13)
--- NOTE | 2018-10-07 20:15 | NUR ---
cath, ngt/ogt, intubation pt stated she previously did not want a catheter do to memories from her past. the order for catheter was explained to her and she agreed to have one. pt also agreed to have ngt/ogt placed. pt stated she was informed that Dr. Treva Hale says she needed to be intubated and she agreed to be intubated.
--- NOTE | 2018-10-07 20:35 | NUR ---
intubation rt at bedside, bagmask at bedside. CARLOS Cruz at bedside. @2034 etomidate administered to pt as ordered by CARLOS Cruz. @2037 succinylcholine was administered according to CARLOS cruz ordered dose. @2038 CARLOS cruz intubated pt.
--- NOTE | 2018-10-07 20:40 | NUR ---
Espinoza catheter insertion Patient assessed and determined to be in need of espinoza catheter. Order obtained from MD. Patient educated on catheter and reason for insertion. All questions answered. Espinoza catheter inserted with clean & sterile technique. Patient sedated and tolerated well.
--- NOTE | 2018-10-07 20:55 | NUR ---
Oral gastric tube insertion Patient previously educated on need for OG tube. All questions addressed. @ 2054 OGT inserted per MD order. Placement verified by aspiration of stomach contents, auscultation and chest xray.
--- NOTE | 2018-10-07 21:00 | NUR ---
call wayne w/abg results Dr. Hernandez on phone stating to call him with abg results and he will give vent orders if needed.
[2018-10-07] MEDS ORDERED: PROPOFOL 100 ML IV ONE (21:11)
--- NOTE | 2018-10-07 21:11 | NUR ---
Dr. Ketty Hale on phone stat orders received, call with results per
--- NOTE | 2018-10-07 22:00 | NUR ---
Dr bledsoe call spoke with Dr. Flip Hale,new orders received. will call back with results per Dr. Flip Hale
--- NOTE | 2018-10-07 22:06 | NUR ---
Dr. Flip Hale paged Dr. Flip Hael paged for orders for pt, awaiting call back
[2018-10-07] MEDS: fentaNYL Drip 2500mCg/250mlNS 250 ML IV SCH (22:16)
[2018-10-07] MEDS ORDERED: fentaNYL Drip 2500mCg/250mlNS 250 ML IV ONE (22:23)
[2018-10-07 22:31] LABS: Eosinophils # (auto) 0.1 uL
--- NOTE | 2018-10-07 22:35 | NUR ---
Left message w/ Dr. Treva Hale exchange left message w/ exchange to inform DR. Flip Hale that Dr. Morocho is aware of consult and pt status. awaiting call back.
[2018-10-07 22:39] LABS: Basophils # (auto) 0 uL; Basophils % (auto) 0.1 % (0.0-2.0); Eosinophils % (auto) 0.7 % (0.0-7.0); Hematocrit 28.9 % (36.0-46.0); Hemoglobin 9.2 g/dL (12.2-16.2); Lymphocytes # (auto) 1.7 uL; Lymphocytes % (auto) 8.7 % (10.0-50.0); Mean Corpuscular Hemoglobin 30.6 pg (28.0-32.0); Mean Corpuscular Hgb Conc. 31.8 g/dL (32.0-36.0); Mean Corpuscular Volume 96.2 fL (80.0-100.0); Monocytes # (auto) 2.4 uL; Monocytes % (auto) 12.5 % (0.0-12.0); Neutrophils # (auto) 15.1 uL; Nucleated Red Blood Cells % 0.1 %; Platelet Count (auto) 336 10^3/uL (140-450); Red Cell Distribution Width 16.3 % (11.8-14.3); White Blood Cell 19.4 10^3/uL (4.4-10.8)
[2018-10-07 22:40] LABS: Albumin 1.5 g/dL (3.4-5.0); Magnesium 1.8 mg/dL (1.6-2.6); Potassium 3.3 mmol/L (3.5-5.1)
[2018-10-07 22:43] LABS: BUN/Creatinine Ratio 38.8; Bilirubin, Total 0.4 mg/dL (0.2-1.0); Total Protein 5.7 g/dL (6.4-8.2)
--- NOTE | 2018-10-07 23:00 | NUR ---
called back Dr. Flip Hale called back and notified that Dr. Montesinos is aware of consult and that orders were given to rn on day shift by dr montesinos. Flip Hale said "ok, call me if there is an emergency or if you need anything for the pt."
[2018-10-07] MEDS: MIDAZOLAM DRIP 50 mg/50mL 50 ML IV SCH (23:58)
[2018-10-08] VITALS (104 sets, daily range): BP systolic 70–146; BP diastolic 27–87
[2018-10-08] MEDS: MEROPENEM 1GM IVPB 100 ML IV SCH ×3 (01:00→17:18)
--- NOTE | 2018-10-08 01:00 | NUR ---
pt sedated and intubated no ss of distress noted at this time. pt tolerates oral care and turns. will continue to care for and monitor
[2018-10-08] MEDS ORDERED: PROPOFOL 100 ML IV ONE ×2 (01:46→06:53)
[2018-10-08] MEDS: D5W/SOD CHL 0.45% 1,000 ML IV SCH ×3 (02:15→19:56)
--- NOTE | 2018-10-08 03:00 | NUR ---
no ss of distress noted at this time will continue to care for and monitor pt.
[2018-10-08 03:55] LABS: Urine WBC None Seen /hpf (0 - 5)
[2018-10-08 03:59] LABS: Basophils # (auto) 0 uL; Basophils % (auto) 0.2 % (0.0-2.0); Eosinophils # (auto) 0.1 uL; Eosinophils % (auto) 0.7 % (0.0-7.0); Hematocrit 27.8 % (36.0-46.0); Hemoglobin 9.3 g/dL (12.2-16.2); Lymphocytes # (auto) 1.5 uL; Lymphocytes % (auto) 7.7 % (10.0-50.0); Mean Corpuscular Hemoglobin 30.6 pg (28.0-32.0); Mean Corpuscular Hgb Conc. 33.6 g/dL (32.0-36.0); Monocytes # (auto) 2.5 uL; Monocytes % (auto) 12.7 % (0.0-12.0); Neutrophils # (auto) 15.5 uL; Neutrophils % (auto) 78.7 % (37.0-80.0); Platelet Count (auto) 366 10^3/uL (140-450); Red Blood Cells 3.05 10^6/uL (4.0-5.20); Red Cell Distribution Width 15.5 % (11.8-14.3); White Blood Cell 19.7 10^3/uL (4.4-10.8)
[2018-10-08 04:18] LABS: Potassium 3.2 mmol/L (3.5-5.1)
[2018-10-08 04:25] LABS: Urine Bacteria NONE SEEN /hpf (None Seen); Urine Blood Negative /uL (Negative); Urine Hyaline Cast FEW /lpf (0 - 2)
[2018-10-08 04:26] LABS: Albumin 1.7 g/dL (3.4-5.0); BUN/Creatinine Ratio 37.7; Bilirubin, Total 0.4 mg/dL (0.2-1.0); Calcium 8.5 mg/dL (8.5-10.1)
[2018-10-08 04:50] LABS: Alcohol, Urine < 3.0 mg/dL (0-5); Amphetamine Screen, Urine NEGATIVE (NEGATIVE); Barbiturate Scree,Urine NEGATIVE (NEGATIVE); Benzodiazephine Screen, Urine POSITIVE (NEGATIVE); Cannabinoid Screen, Urine NEGATIVE (NEGATIVE); Cocaine Screen, Urine NEGATIVE (NEGATIVE); Opiate Scree,Urine NEGATIVE (NEGATIVE); Phencyclidine Screen, Urine NEGATIVE (NEGATIVE)
--- NOTE | 2018-10-08 05:00 | NUR ---
hygiene partial bed bath given, partial lenins changed. Optifoam applied to sacrum for preventative measures. suction canisters and tubing changed. pt tolerates care. will continue to care for and monitor
[2018-10-08] MEDS: VANCOMYCIN 500 MG in D5W 5% 100 ML IV SCH ×2 (05:56→19:47)
--- NOTE | 2018-10-08 07:18 | NUR ---
REPORT AND CARE ENDORSED TO RONNIE Link
[2018-10-08] MEDS ORDERED: PROPOFOL 100 ML IV SCH (07:19)
--- NOTE | 2018-10-08 07:30 | NUR ---
Respiratory note: TITRATED FIO2 TO 30% POST ABG.
--- NOTE | 2018-10-08 08:00 | NUR ---
Pulmonary clarification Dr. Hernandez called and clarified if he is taking consults at this time as it was unclear in report. stated he is covering for archery equipment repairer at this time. He will covering archery equipment repairer but archery equipment repairer to be clarified with Dr. Hale.
--- NOTE | 2018-10-08 08:20 | NUR ---
Family updated Attempted to contact family, friend listed as miladis Francisco stated patient does have 3 children but are unavailable as 1 son lives far away in [place], the other is homeless and other is in a rehab facility in [place]. Francisco stating she has her mother that lives in [place] and is currently aware she is hospitalized, Francisco to obtain number and callback.
[2018-10-08] MEDS: PROPOFOL 100 ML IV SCH ×2 (09:29→19:48)
--- NOTE | 2018-10-08 09:30 | NUR ---
SURGICAL CONSULT DR. ESPINOSA AT BEDSIDE. UDPATED ON PATIENTS STATUS. PATIENT ABD AT THIS TIME IS SOFT, PUFFY WITH HYPOACTIVE BOWEL SOUNDS, FLATUS PRESENT. OG TO LCS. AWARE OF K LEVEL THIS A.M. SEE NEW ORDERS.
[2018-10-08] MEDS ORDERED: PANTOPRAZOLE 40 MG/10 ML VIAL INJ IV SCH (10:00)
--- NOTE | 2018-10-08 10:30 | NUR ---
GI CONSULT DR. JERNIGAN AT BEDSIDE. MD UPDATED ON PATIENT STATUS. PER MD NO PROCEDURES TO BE PERFORMED AT THIS TIME.
[2018-10-08] MEDS ORDERED: TPN PER PHARMACY 0 ML IV SCH (11:15)
[2018-10-08 11:27] LABS: Magnesium 1.9 mg/dL (1.6-2.6); Phosphorus 2.9 mg/dL (2.5-4.90)
[2018-10-08 11:40] LABS: INR 1.01 (0.9-1.15); Partial Thromboplastin Time 25.4 sec (23.64-32.05)
--- NOTE | 2018-10-08 13:00 | NUR ---
WOUND CARE NOTE: IN TO SEE PATIENT AT THIS TIME PER WOUND CARE CONSULT REQUEST. PATIENT WAS NOTED UPON ADMIT TO HAVE SKIN INTEGRITY ISSUES. WOUND PHOTOS TAKEN AT THAT TIME BY BEDSIDE NURSE FOR REFERENCE. PATIENT IS INTUBATED, SEDATED. CURRENT FINESSE SCORE IS 9. PATIENT ADMITTED TO [facility] WITH DIAGNOSIS OF POSSIBLE BOWEL PERFORATION. PATIENT NOTED TO HAVE RIGHT HIP DTI, THAT HAS OPEN BLISTER. APPLIED THERAHONEY, OPTIFOAM GENTLE DRESSING. APPLIED OPTIFOAM GENTLE SACRAL DRESSING TO UPPER SACRUM PREVENTATIVE. RIGHT FOOT IS NOTED TO HAVE 2 ECCHYMOTIC AREA TO ANTERIOR FOOT AND LATERAL ANKLE. ANTERIOR ANKLE HAS AN INTACT DTI NOTED. LEFT ALL OPEN TO AIR. NO OTHER SKIN INTEGRITY ISSUES NOTED AT THIS TIME. RECOMMEND: FREQUENT TURN SCHEDULE Q 2 HOURS, PRN CONDITION PERMITS, WITH PRESSURE REDISTRIBUTION USING PILLOWS/WEDGES, BID/PRN APPLICATION WITH MOISTURE BARRIER CREAM, OPTIFOAM GENTLE SACRAL DRESSING PREVENTATIVE, EOD/PRN DRESSING CHANGE TO RIGHT HIP WOUND, DIETARY CONSULT FOR WOUNDS, SKIN/WOUND CARE PLAN, CONTINUED MONITORING BY WOUND CARE TEAM. Addendum: 10/08/18 at 1610 by Es Howard RN Amended: Links added.
[2018-10-08] MEDS: POTASSIUM CHL 20MEQ/100ML 100 ML IV SCH ×2 (14:14→15:50)
--- NOTE | 2018-10-08 14:30 | NUR ---
REPORT GIVEN TO NURSE KAYLA UPDATED ON PATIENT STATUS, CURRENT VS STABLE. PLAN OF CARE REVIEWED. AWAITING DR. MERCEDES TO MAKE ROUNDS.
--- NOTE | 2018-10-08 14:35 | NUR ---
ASSUMED CARE OF PATIENT AFTER RECEIVEING REPORT FROM RUY TRUJILLO.
--- NOTE | 2018-10-08 15:00 | NUR ---
DR Flip MERCEDES VISIT ET EXAMINES PATIENT - ORDERS RECEIVED.
[2018-10-08] MEDS: MIDAZOLAM DRIP 50 mg/50mL 50 ML IV SCH ×2 (15:50→19:54)
--- NOTE | 2018-10-08 16:00 | NUR ---
DR MERCEDES VISITS ET EXAMINES PATIENT - ORDERS RECEIVED.
--- NOTE | 2018-10-08 16:20 | NUR ---
PATIENT'S SISTER PHONES - UPDATED ON PATIENT CONDITION - VERBALIZES UNDERSTANDING. CONSENT FOR PICC LINE OBTAINED OVER PHONE WITH WITNESS.
[2018-10-08] MEDS ORDERED: LIDOCAINE 1% (LOCAL ANESTH.) PF 5ml SDV ID ONE (17:45)
--- NOTE | 2018-10-08 17:45 | NUR ---
PICC line placement Patient/Patient significant other educated on need for PICC line placement by primary RN. All risks and benefits explained and all questions and concerns addressed prior to procedure. Noted past medical history and allergies with no contraindications. INR and Plt counts within acceptable range. 5 fr PICC line inserted via right brachial vein using [employer] US and Tip Location System. Sterile technique with maximum barrier precautions utilized. Blood return obtained from each of the three lumens and each flushed easily with NS using proper technique. PICC secured with Stat-lock; biodisc and occlusive dressing applied. Stat portable chest x-ray obtained for PICC tip placement. *Baseline Arm Circumference 29 cm. *Internal Length 40 cm. *External length 0 cm. *PICC lot #[id number]. Note: EBL 3mls. Tolerated well.
--- NOTE | 2018-10-08 18:36 | NUR ---
Okay to use PICC Line X-ray completed. Primary RN notified.
[2018-10-08] MEDS: fentaNYL Drip 2500mCg/250mlNS 250 ML IV SCH (19:00)
--- NOTE | 2018-10-08 19:10 | NUR ---
DR FLORES VISITS ET EXAMINES PATIENT - NO NEW ORDERS RECEIVED.
--- NOTE | 2018-10-08 19:30 | NUR ---
CARE ENDORSED TO RADHAMES TRUJILLO.
[2018-10-08] MEDS: MAGNESIUM SULFATE 1GM/100ML 100 ML IV SCH ×2 (19:54→21:05)
[2018-10-08] MEDS: NOREPINEPHRINE 8 MG/250ML KIT 250 ML IV SCH (19:58)
[2018-10-08] MEDS ORDERED: SODIUM ACETATE IV NR ×9 (20:00)
[2018-10-08] MEDS ORDERED: POTASSIUM PHOSPHATE IV NR ×9 (20:00)
[2018-10-08] MEDS ORDERED: POTASSIUM ACETATE IV NR ×9 (20:00)
[2018-10-08] MEDS ORDERED: [UNRECOGNIZED DRUG - OTHER] IV NR ×9 (20:00)
--- NOTE | 2018-10-08 21:00 | NUR ---
SEDATION VACATION SEDATION VACATION IS NOT DONE. PATIENT OPENED EYES ON VERBAL STIMULI AND SHE IS RESTLESS. SEDATION INCREASED. Addendum: 10/08/18 at 2247 by Yasmin Newmna RN Amended: Links added.
[2018-10-08] MEDS: SODIUM CHLOR 0.9% PF (SALINE LOCK) 10ML VIAL/SYR IV SCH (21:08)
[2018-10-09] VITALS (105 sets, daily range): BP systolic 80–150; BP diastolic 44–74
[2018-10-09] MEDS ORDERED: DEXTROSE (50%) 50ML SYRG IV SCH
[2018-10-09] MEDS: PROPOFOL 100 ML IV SCH ×4 (00:12→18:19)
[2018-10-09] MEDS: MIDAZOLAM DRIP 50 mg/50mL 50 ML IV SCH ×2 (00:12→23:58)
[2018-10-09] MEDS: ACCU-CHEK COMFORT CURVE STRIP VI SCH ×4 (00:24→18:19)
[2018-10-09] MEDS: MEROPENEM 1GM IVPB 100 ML IV SCH ×2 (00:25→10:18)
[2018-10-09] MEDS: fentaNYL Drip 2500mCg/250mlNS 250 ML IV SCH (03:42)
[2018-10-09] MEDS: NOREPINEPHRINE 8 MG/250ML KIT 250 ML IV SCH (03:43)
[2018-10-09 04:07] LABS: Hematocrit 25.3 % (36.0-46.0); Hemoglobin 8.6 g/dL (12.2-16.2); Mean Corpuscular Hemoglobin 31.3 pg (28.0-32.0); Mean Corpuscular Hgb Conc. 33.8 g/dL (32.0-36.0); Mean Corpuscular Volume 92.5 fL (80.0-100.0); Platelet Count (auto) 361 10^3/uL (140-450); Red Blood Cells 2.74 10^6/uL (4.0-5.20); Red Cell Distribution Width 15.5 % (11.8-14.3); White Blood Cell 18.9 10^3/uL (4.4-10.8)
[2018-10-09 04:27] LABS: Albumin 1.3 g/dL (3.4-5.0); BUN/Creatinine Ratio 20.8; Bilirubin, Total 0.4 mg/dL (0.2-1.0); Calcium 8.5 mg/dL (8.5-10.1); Magnesium 2.7 mg/dL (1.6-2.6); Phosphorus 3.7 mg/dL (2.5-4.90); Pre Albumin 6.3 mg/dL (20.0-40.0); Total Protein 5.5 g/dL (6.4-8.2)
[2018-10-09 04:32] LABS: Band Neutrophils % (manual) 0; Basophils % (manual) 0 (0.0-2.0); Blast Cells 0; Eosinophils % (manual) 0 (0-7); Metamyelocytes % 0; Myelocytes % 0; Promyelocytes % 0; Reactive Lymphocytes 0
[2018-10-09 05:22] LABS: Lymphocytes % (manual) 15 (10.0-50.0); Monocytes % (manual) 4 (0-12)
[2018-10-09] MEDS: VANCOMYCIN 500 MG in D5W 5% 100 ML IV SCH (05:44)
[2018-10-09] MEDS: InsuLIN REG 1unit/0.01ml Soln (100units/ml) SC SCH ×3 (05:48→12:00)
--- NOTE | 2018-10-09 07:35 | NUR ---
NOTIFIED PER RADIOLOGIST OF FRACTURED LEFT FOOT RESULT FROM XRAY - CALL PLACED TO DR Flip MERCEDES.
--- NOTE | 2018-10-09 09:00 | NUR ---
SEDATION VACATION HELD - PATIENT RESPONSIVE TO TOUCH ET VERBAL STIMULI. Addendum: 10/09/18 at 1541 by Peggy Durán RN Amended: Links added.
--- NOTE | 2018-10-09 09:06 | NUR ---
DR FLORES PHONES - GIVEN ABG RESULTS - NO ORDERS RECEIVED.
[2018-10-09] MEDS: ENOXAPARIN SOD 40 MG/0.4 ML SYRINGE SC SCH (10:18)
[2018-10-09] MEDS: SODIUM CHLOR 0.9% PF (SALINE LOCK) 10ML VIAL/SYR IV SCH ×2 (10:18→22:00)
[2018-10-09] MEDS: FAMOTIDINE (10MG/ML) 2ML VL IV SCH (10:18)
--- NOTE | 2018-10-09 11:29 | NUR ---
NUTRITION CONSULT/ASSESSMENT NOTES Please refer to link notes of nutrition screen form filed under the intervention section of the plan of care for further details. Est. Needs: 1550 kcal to 1850 kcal (25-30 kcal/kgBW), 73 gms to 92 gms pro (1.2-1.5 gms/kgBW d/t severe hypoalbuminemia). Will continue to monitor pertinent labs and reassess nutrient need prn Thank you for this consult. Addendum: 10/09/18 at [address] Amended: Links added.
--- NOTE | 2018-10-09 11:30 | NUR ---
DR MERCEDES VISITS ET EXAMINES PATIENT - INFORMED OF FRACTURE LEFT FOOT PER XRAY RESULT THIS AM - ORDER RECEIVED.
--- NOTE | 2018-10-09 11:45 | NUR ---
DR ESPINOSA VISITS ET EXAMINES PATIENT -ORDERS RECEIVED.
[2018-10-09] MEDS: VANCOMYCIN 1GM/250ML 250 ML IV SCH ×2 (12:30→23:00)
--- NOTE | 2018-10-09 14:00 | NUR ---
PATIENT'S SISTER PHONES - UPDATED ON PATIENT CONDITION ET POC - VERBALIZED UNDERSTANDING.
[2018-10-09] MEDS: D5W/SOD CHL 0.45% 1,000 ML IV SCH (16:00)
--- NOTE | 2018-10-09 18:30 | NUR ---
DR FLORES VISITS ET EXAMINES PATIENT - ORDER RECEIVED.
--- NOTE | 2018-10-09 18:45 | NUR ---
PATIENT AWAKE ET RESTLESS - DIPRIVAN INCREASED TO 50 MCG.
--- NOTE | 2018-10-09 19:00 | NUR ---
DATE FOR GASTROGRAFIN CLARIFIED WITH DR ESPINOSA - ORDER RECEIVED.
[2018-10-09] MEDS ORDERED: TPN PER PHARMACY IV NR ×7 (20:00)
[2018-10-10] VITALS (110 sets, daily range): BP systolic 76–154; BP diastolic 44–73
--- NOTE | 2018-10-10 03:17 | NUR ---
PT APPEARS TO BE RESTING IN BED NO SS OF DISTRESS NOTED AT THIS TIME. WILL CONTINUE TO CARE FOR AND MONITOR
[2018-10-10 03:50] LABS: Hematocrit 26.2 % (36.0-46.0); Hemoglobin 8.6 g/dL (12.2-16.2); Mean Corpuscular Hemoglobin 30.7 pg (28.0-32.0); Mean Corpuscular Volume 92.9 fL (80.0-100.0); Platelet Count (auto) 375 10^3/uL (140-450); Red Blood Cells 2.82 10^6/uL (4.0-5.20); Red Cell Distribution Width 15.3 % (11.8-14.3); White Blood Cell 13.5 10^3/uL (4.4-10.8)
[2018-10-10 04:03] LABS: Band Neutrophils % (manual) 0; Basophils % (manual) 0 (0.0-2.0); Blast Cells 0; Eosinophils % (manual) 0 (0-7); Metamyelocytes % 0; Myelocytes % 0; Promyelocytes % 0; Reactive Lymphocytes 0
[2018-10-10 04:23] LABS: Albumin 1.2 g/dL (3.4-5.0); Calcium 8.4 mg/dL (8.5-10.1); Magnesium 1.9 mg/dL (1.6-2.6)
[2018-10-10 04:26] LABS: Bilirubin, Total 0.3 mg/dL (0.2-1.0); Total Protein 5.3 g/dL (6.4-8.2)
[2018-10-10] MEDS: ACCU-CHEK COMFORT CURVE STRIP VI SCH ×5 (06:00→23:19)
[2018-10-10] MEDS: InsuLIN REG 1unit/0.01ml Soln (100units/ml) SC SCH ×5 (06:00→23:19)
[2018-10-10 06:30] LABS: Lymphocytes % (manual) 26 (10.0-50.0); Monocytes % (manual) 5 (0-12)
--- NOTE | 2018-10-10 07:25 | NUR ---
REPORT GIVEN , CARE TRANSFERRED TO DAY RN
--- NOTE | 2018-10-10 08:00 | NUR ---
OPEN RECEIVED REPORT FROM MRI TECH RN YUN Ramirez PATIENT RESTING IN BED ON VENTILATOR ETT 7.5 AND 22 AT THE LIP. VENT SETTINGS ARE AC 14 TV 450 FIO2 30 PEEP 5. POSITIVE GAG. SEDATED USING PROPOFOL AND VERSED. HEART RATE IN THE 80'S SBP 110-130'S ON LEVOPHED. KEARNEY FREE OF KINKS, HANGING BELOW BLADDER, DRAINING YELLOW URINE. OGT IN PLACE, AUSCULTATED AND ASPIRATED, CONNECTED TO CONTINUOUS SUCTIONING. SEE WOUND ASSESSMENT FOR MORE INFORMATION. PATIENT IN NO SIGN OF DISTRESS.
--- NOTE | 2018-10-10 09:00 | NUR ---
MD Flip LOVELACE AT [facility]. UPDATED ON PLAN OF CARE. NO NEW ORDERS RECEIVED AT THIS TIME.
[2018-10-10] MEDS: PROPOFOL 100 ML IV SCH ×3 (10:00→22:46)
--- NOTE | 2018-10-10 10:30 | NUR ---
PHONE CALL RECEIVED FROM FAMILY. ARJUN PATIENT FAMILY MEMBER CALLED REQUESTING INFORMATION. PASSWORD WAS CORRECT AND ALL QUESTIONS WERE ANSWERED AT THIS TIME.
[2018-10-10] MEDS: FAMOTIDINE (10MG/ML) 2ML VL IV SCH (10:59)
[2018-10-10] MEDS: VANCOMYCIN 1GM/250ML 250 ML IV SCH ×2 (10:59→22:47)
[2018-10-10] MEDS: ENOXAPARIN SOD 40 MG/0.4 ML SYRINGE SC SCH (10:59)
[2018-10-10] MEDS: SODIUM CHLOR 0.9% PF (SALINE LOCK) 10ML VIAL/SYR IV SCH ×2 (11:00→19:30)
[2018-10-10] MEDS: NOREPINEPHRINE 8 MG/250ML KIT 250 ML IV SCH (11:15)
[2018-10-10] MEDS: D5W/SOD CHL 0.45% 1,000 ML IV SCH ×2 (12:00→17:44)
[2018-10-10] MEDS: MEROPENEM 1GM IVPB 100 ML IV SCH ×2 (14:00→18:56)
--- NOTE | 2018-10-10 15:00 | NUR ---
MD JERNIGAN AT BEDSIDE. GI MD JERNIGAN AT BEDSIDE. UPDATED ON PLAN OF CARE FOR PATIENT. ORDERS RECEIVED.
[2018-10-10] MEDS: MIDAZOLAM DRIP 50 mg/50mL 50 ML IV SCH ×2 (17:43→22:45)
--- NOTE | 2018-10-10 19:30 | NUR ---
REPORT RECEIVED, ASSUMED CARE.
[2018-10-10] MEDS ORDERED: TPN PER PHARMACY IV NR ×8 (20:00)
[2018-10-10] MEDS: fentaNYL Drip 2500mCg/250mlNS 250 ML IV SCH (22:16)
[2018-10-11] VITALS (104 sets, daily range): BP systolic 75–148; BP diastolic 42–92
[2018-10-11] MEDS: MEROPENEM 1GM IVPB 100 ML IV SCH ×3 (01:20→17:04)
[2018-10-11] MEDS: D5W/SOD CHL 0.45% 1,000 ML IV SCH ×2 (01:20→15:00)
[2018-10-11 04:45] LABS: Albumin 1.2 g/dL (3.4-5.0); Calcium 8.5 mg/dL (8.5-10.1); Magnesium 1.8 mg/dL (1.6-2.6); Potassium 3.8 mmol/L (3.5-5.1)
[2018-10-11 04:49] LABS: BUN/Creatinine Ratio 30.6; Bilirubin, Total 0.2 mg/dL (0.2-1.0); Phosphorus 2.7 mg/dL (2.5-4.90); Total Protein 5.4 g/dL (6.4-8.2)
[2018-10-11] MEDS: InsuLIN REG 1unit/0.01ml Soln (100units/ml) SC SCH ×4 (06:00→23:57)
[2018-10-11] MEDS: MIDAZOLAM DRIP 50 mg/50mL 50 ML IV SCH ×4 (06:26→23:52)
[2018-10-11] MEDS: ACCU-CHEK COMFORT CURVE STRIP VI SCH ×4 (06:27→23:57)
[2018-10-11] MEDS: PROPOFOL 100 ML IV SCH ×3 (07:29→23:53)
[2018-10-11] MEDS: fentaNYL Drip 2500mCg/250mlNS 250 ML IV SCH (07:30)
[2018-10-11] MEDS ORDERED: GASTROGRAFIN 120 ML SOL ONE (07:35)
--- NOTE | 2018-10-11 09:05 | NUR ---
RT NOTE PT TRANSPORTED TO CT AT 0845 FOR BOWEL SCAN. TRANSPORT VIA AMBUBAG 15L PLACED ONTO CT VENT FOR DURATION OF SCAN TRANSPORTED BACK TO ROOM AND PLACED ON BEDSIDE VENT W/O INCIDENT. RN AND COMPLIANCE INTERN AT BEDSIDE WITH RT FOR TRANSPORT. WILL CONTINUE TO MONITOR RT STUDENT NESS AREVALO
[2018-10-11] MEDS: ENOXAPARIN SOD 40 MG/0.4 ML SYRINGE SC SCH (09:45)
[2018-10-11] MEDS: SODIUM CHLOR 0.9% PF (SALINE LOCK) 10ML VIAL/SYR IV SCH ×2 (09:45→22:00)
[2018-10-11] MEDS: FAMOTIDINE (10MG/ML) 2ML VL IV SCH (09:45)
[2018-10-11] MEDS: VANCOMYCIN 750 MG in D5W 5% 250 ML IV SCH ×2 (11:30→23:18)
--- NOTE | 2018-10-11 13:11 | NUR ---
Resumed care at 0700. Orders reviewed and ongoing assessments being done. Remains intubated and sedated. Have increased sedation since early am. Awake and able to follow simple direction and shift her own body weight. Admitted for possible diverticulitis perforation. Increased sedation for comfort. Dr. Espinal, surgeon rounded at [address] scan of the abdomen/pelvis with a Gastrografin enema. Was escorted to the radiology department by Cirilo TRUJILLO at 0843 and returned to room at 0925 without incident. Passed large amount of contrast with fecal matter. Total bed change required. Maintaining skin clean and dry and applying skin barrier cream. Notified Dr. Espinal at [address] scan had not been read yet. Just now contacted the radiology department, Dr. Dillon in procedures and has not been able to read image. Per radiology staff, brought to Dr. Dillon's attention. Titrating Levophed gtt for hemodynamic stability as appropriate. Infusing via PICC line to right upper arm. Dr. Flip Hale rounded at [address] Norman rounded at 1150. Continue current plan of care until Dr. Espinal determines of she is a surgical candidate. Received call from Graciela (mother) and updated her on plan of care.
[2018-10-11] MEDS: NOREPINEPHRINE 8 MG/250ML KIT 250 ML IV SCH (15:00)
--- NOTE | 2018-10-11 15:00 | NUR ---
Nutrition Follow-up Notes Wt.: 62.4 kg Pt was intubated sedated with propofol @ 8.175 ml/hr providing 216 kcals from fats with no family by bedside. per records pt s/p Gastrografin study this am. pt continues to be NPO with PN support @ 58 ml/hr providing 1470 kcals and 70 gm proteins 1190 NCP. pt with adequate PN support as it meets 91-108% kcals and 76-95% proteins with propofol on board Est. Needs: 1550 kcal to 1850 kcal (25-30 kcal/kgBW), 73 gms to 92 gms pro (1.2-1.5 gms/kgBW d/t severe hypoalbuminemia). Will continue to monitor pertinent labs and reassess nutrient need prn Labs: GLU 130 H, ALB 1.2 L, Skin: Bay scale 12, high risk, DTI to ankle and hip per sales representative printing supplies. refer to WC notes for details GI: Pt has no BM reported with 275 ml of gastric drainage per sales representative printing supplies. PES: Altered nutrition related lab values r/t acute/chronic medical condition aeb hyperglycemia, low Cr, elev. Mg, LFTs and severe hypoalbuminemia Increase nutrient needs r/t current medical condition aeb intubated, sedated, severe hypoalbuminemia, NPO with PN support. Will continue to monitor NPO status, PN tolerance, skin status, pertinent labs and weight trend. F/u in 2-3 days. Rec.: 1.) If still NPO with PN support, consider gradual increase on calories and protein to meet at least 75% of est nutrient needs. 2.) Advance gradually to oral diet when medically appropriate. 3.) Refer to RD for further nutrition education and weight monitoring upon discharged. 4.) Continue current plan of care
--- NOTE | 2018-10-11 18:23 | NUR ---
Contacted Dr. Espinal at 1405. Made him aware of results of CT abdomen and pelvis. Per Dr. Espinal no indication for surgery at this time. Will continue to monitor daily and reevaluate. Contacted patient's mother Graciela and made her aware of plan of care. Remains intubated and sedated and easily awakens when stimulated. Remains on Levophed for hemodynamic stability.
--- NOTE | 2018-10-11 19:30 | NUR ---
CARE ASSUMED, REPORT FROM BILL TRUJILLO. ASSESSMENT: PT. INTUBATED AND SEDATED ON PROPOFOL, VERSED AND FENTANYL ALL INFUSING THRU RIGHT UPPER TRIPLE LUMEN PICC LINE, WHICH APPEARS INTACT. OPEN EYES WHEN WHEN STIMULATED, NOT FOLLOWING COMMANDS AT THIS TIME. CARDIAC -- SINUS RHYTHM, 70'S, BBB, DEPRESS ST SEGMENT. SBP 120'S. CONTINUES ON LEVOPHED AT 7 MCG/MIN. LUNGS CLEAR, SATS 100%. 7.5 FR, 22 CM AT LIP LINE. ORAL CARE PROVIDED ABDOMEN - SOFT, SMALL, NO GRIMACING WHEN PALPATING AT THIS TIME. NO B.M OF NOW. OGT WITH LIGHT GREEN, FLUIDS, TO LIS. KEARNEY WITH CLEAR, JOYCE URINE. SKIN - WARM AND DRY. BRUISED LEFT FOOT TO TOES AND ANKLE. MISSING GREAT TOE NAIL, OPEN TO AIR.
[2018-10-11] MEDS ORDERED: TPN PER PHARMACY IV NR ×8 (20:00)
[2018-10-12] VITALS (91 sets, daily range): BP systolic 82–157; BP diastolic 41–90
[2018-10-12] MEDS: MEROPENEM 1GM IVPB 100 ML IV SCH ×3 (01:00→18:00)
[2018-10-12] MEDS: D5W/SOD CHL 0.45% 1,000 ML IV SCH ×2 (03:48→17:20)
--- NOTE | 2018-10-12 04:00 | NUR ---
COMPLETE BED BATH, WAKES UP BUT DOES NOT FOLLOW COMMANDS. KICKS LEGS WHEN STIMULATED. CONTINUES ON PROPOFOL, VERSED AND FENTANYL. SBP 90'S. SATS 100% ON 30%
[2018-10-12 05:31] LABS: Alanine Aminotransferase 31 U/L (13-56); Albumin 1.2 g/dL (3.4-5.0); Anion Gap 8 (5-15); Aspartate Aminotransferase 15 U/L (15-37); BUN/Creatinine Ratio 38.2; Blood Urea Nitrogen 13 mg/dL (7-18); Calcium 8.4 mg/dL (8.5-10.1); Carbon Dioxide 29 mmol/L (21-32); Chloride 104 mmol/L (98-107); GFR African American 249 mL/min; GFR Non-African American 206 mL/min; Glucose 103 mg/dL (74-106); Magnesium 1.8 mg/dL (1.6-2.6); Potassium 3.9 mmol/L (3.5-5.1); Sodium 141 mmol/L (136-145)
[2018-10-12 05:34] LABS: Alkaline Phosphatase 183 U/L (45-117); Bilirubin, Total 0.2 mg/dL (0.2-1.0); Total Protein 5.6 g/dL (6.4-8.2)
[2018-10-12] MEDS: InsuLIN REG 1unit/0.01ml Soln (100units/ml) SC SCH ×3 (06:00→18:00)
[2018-10-12] MEDS: ACCU-CHEK COMFORT CURVE STRIP VI SCH ×3 (06:02→18:00)
--- NOTE | 2018-10-12 07:30 | NUR ---
Opening Shift Note Assumed care of patient, patient current mechanically ventilated and sedated. No S/S of distress/SOB or pain noted. Fall and safety precautions initiated, will continue to monitor for changes Q1hr and PRN.
[2018-10-12 08:04] LABS: Hematocrit 27.6 % (36.0-46.0); Hemoglobin 9.1 g/dL (12.2-16.2); Mean Corpuscular Hemoglobin 30.8 pg (28.0-32.0); Mean Corpuscular Volume 93.4 fL (80.0-100.0); Platelet Count (auto) 530 10^3/uL (140-450); Red Blood Cells 2.96 10^6/uL (4.0-5.20); White Blood Cell 11.6 10^3/uL (4.4-10.8)
[2018-10-12 08:05] LABS: Basophils % (manual) 0 (0.0-2.0); Blast Cells 0; Eosinophils % (manual) 0 (0-7); Myelocytes % 0; Promyelocytes % 0; Reactive Lymphocytes 0
--- NOTE | 2018-10-12 08:45 | NUR ---
DR SALGADO AT BEDSIDE UPDATED ON PATIENT'S STATUS AND ORDERS FOR SURGERY. CPAP ORDERS RECEIVED, Antonio SINGH AWARE. WILL CONTACT BOTH SURGEON AND GI DOCTOR'S TO NOTIFY OF CPAP ORDERS. SEDATION DECREASED.
[2018-10-12] MEDS: NOREPINEPHRINE 8 MG/250ML KIT 250 ML IV SCH (08:47)
--- NOTE | 2018-10-12 09:34 | NUR ---
CONTACT SURGEON AND DR DELON ESPINOSA AND DR JERNIGAN UPDATED ON PATIENT'S STATUS AND DR SALGADO'S RECOMMENDATIONS TO CPAP. BOTH DOCTOR'S AGREED TO CPAP. NO FURTHER ORDERS RECEIVED.
[2018-10-12] MEDS: SODIUM CHLOR 0.9% PF (SALINE LOCK) 10ML VIAL/SYR IV SCH ×2 (10:00→22:00)
[2018-10-12] MEDS: FAMOTIDINE (10MG/ML) 2ML VL IV SCH (10:00)
--- NOTE | 2018-10-12 10:00 | NUR ---
Respiratory note: PT PLACED ON CPAP PER DR. SALGADO. NO SOB NOTED. WILL OBTAIN ABG IN ONE HOUR. RONNIE IGLESIAS IS AWARE.
--- NOTE | 2018-10-12 10:49 | NUR ---
FAMILY UPDATED/DR ESPINOSA AT BEDSIDE PATIENT'S MOTHER ARJUN UPDATED ON PATIENT'S STATUS AFTER PASSWORD VERIFICATION. DR ESPINOSA AT BEDSIDE, NO ORDERS AST THIS TIME. DR ESPINOSA DID MENTION THAT HE MAY ORDER A CT GUIDED ULTRASOUND FOR DRAINAGE IN A FEW DAYS. DR ESPINOSA ALSO AWARE THAT CPAP IS IN PROCESS. DR ESPINOSA ORDERED STRICT NPO UNTIL FURTHER NOTICE, KEEP OGT IN PLACE.
--- NOTE | 2018-10-12 11:22 | NUR ---
CONTACT HOSPITALIST SPOKE WITH DR Flip MERCEDES, UPDATED ON PATIENT'S STATUS AND ALL MDS RECOMMENDATIONS. DR MERCEDES ALSO NOTIFIED OF CPAP AND INCREASED HR AND RESPIRATIONS. ORDERS FOR ONE TIME DOSE LASIX RECEIVED AND VERBALIZED AGREEMENT WITH ALL MD RECOMMENDATIONS. ORDERS WILL BE CARRIED OUT.
[2018-10-12] MEDS ORDERED: FUROSEMIDE 40 MG/4 ML VIAL IV ONE (11:30)
--- NOTE | 2018-10-12 11:30 | NUR ---
CPAP RESULTS/PAGE PULMONOLOGY MESSAGE LEFT FOR DR SALGADO TO NOTIFY OF CPAP TRIAL RESULTS. MESSAGE LEFT WITH HERON, AWAITING RESPONSE.
--- NOTE | 2018-10-12 11:59 | NUR ---
RETURN CALL FROM DR Flip SALGADO UPDATED ON ABG AND CPAP PERIMETERS. ORDERS TO DISCONTINUE ALL SEDATION RECEIVED, LASIX PREVIOUSLY ORDERED BY DR Flip MERCEDES OK, SIT UP 60 DEGREES, NORCO 10/325 Q4H PRN FOR CHRONIC BACK PAIN NOW AND REPEAT NIF IN ONE HOUR. NOTIFY WITH NIF RESULTS. Antonio SINGH WILL BE NOTIFIED.
[2018-10-12] MEDS: VANCOMYCIN 750 MG in D5W 5% 250 ML IV SCH ×2 (12:16→23:00)
[2018-10-12] MEDS: HYDROcodone-ACET 10/325MG TAB PO PRN ×2 (12:17→22:50)
--- NOTE | 2018-10-12 12:53 | NUR ---
BM/COMFORT/PAIN PATIENT CLEANSED OF MODERATE SIZE LIQUID BROWN STOOL, PATIENT TOLERATED WELL. PATIENT MEDICATED FOR PAIN AND SITTING UP [address] SALGADO. PATIENT ALERT AND ORIENTED X4, TOLERATING CPAP WELL, VSS AND DOCUMENTED. CALL LIGHT WITHIN REACH, FALL AND SAFETY PRECAUTIONS IN PLACE. Addendum: 10/12/18 at 1937 by Genesis Root RN WOUND CARE PERFORMED TO LEFT HIP AND PROPHYLACTIC SACRAL OPTIFOAM.
--- NOTE | 2018-10-12 13:47 | NUR ---
PAGED DR SALGADO TO NOTIFY OF CURRENT NIF -25 PER Ken SINGH.Beth. PATIENT REMAINS ALERT AND ORIENTED X4, MECHANICALLY VENTILATED, FOLLOWING COMMANDS, VSS AND DOCUMENTED. AWAITING RESPONSE.
--- NOTE | 2018-10-12 14:04 | NUR ---
RETURN CALL FROM DR SALGADO UPDATED ON REPEAT NIF -25 AND CURRENT PATIENT STATUS, VS. ORDERS TO EXTUBATE RECEIVED.
--- NOTE | 2018-10-12 14:20 | NUR ---
Respiratory note: PT EXTUBATED AND HAS BEEN PLACED ON A CA MASK WITH 30% FIO2. NO SOB NOTED. PT TOLERATED THE EXTUBATION WELL. NO STRIDOR NOTED. B/S ARE DIMINISHED THROUGHOUT WITH EXPIRATORY RHONCHI. PT EDUCATED ON IMPORTANCE OF COUGHING. POX 97%, HR 104, RR 22.
--- NOTE | 2018-10-12 15:00 | NUR ---
BM/COMFORT PATIENT CLEANSED OF SMALL BROWN LIQUID STOOL, PARTIAL BEDDING CHANGED, VSS AND DOCUMENTED. PATIENT TOLERATED WELL. PATIENT ABLE TO TURN SELF AT THIS TIME.
--- NOTE | 2018-10-12 16:51 | NUR ---
Family updated on pt status Family of JORI COTTOORAH updated on patient's status and condition after password verificastion. All questions and concerns addressed. Francisco verbalized understanding. Telephone call transferred to portable phone and given to patient. Patient conversing appropriately.
[2018-10-12 17:12] LABS: Band Neutrophils % (manual) 4; Lymphocytes % (manual) 31 (10.0-50.0); Metamyelocytes % 1; Monocytes % (manual) 9 (0-12)
[2018-10-12] MEDS: ENOXAPARIN SOD 40 MG/0.4 ML SYRINGE SC SCH (18:00)
--- NOTE | 2018-10-12 18:00 | NUR ---
BM/COMFORT PATIENT CLEANSED OF MODERATE SOFT BROWN STOOL, PATIENT TOLERATED WELL. NO STOOL SAMPLE SENT PER C-DIFF PROTOCOL, PATIENT ADMINISTERED GASTROGRAFIN YESTERDAY 10/11/18. ARJUN, CHARGE NURSE AWARE.
--- NOTE | 2018-10-12 19:30 | NUR ---
END OF SHIFT NOTE PATIENT LYING IN BED, ALERT AND ORIENTED X4, RESPIRATIONS EVEN AND UNLABORED, NO DISTRESS NOTED. PATIENT CONTINUES ON LEVOPHED DRIP AND ON OXYGEN MASK. FALL AND SAFETY PRECAUTIONS IN PLACE, ENDORSED CONTINUED CARE TO ACETYLENE CUTTER RN.
--- NOTE | 2018-10-12 19:40 | NUR ---
open note RECEIVED REPORT FROM DAY RN, KELSIE. ASSUMED CARE OF FEMALE PT SITTING IN BED, ALERT AWAKE ON OXYGEN MASK. PT IS ON LEVOPHED DRIP. FALL AND SAFETY PRECAUTIONS IN PLACE.PT IS IN FULL VIEW OF RN STATION. NO SS OF DISTRESS NOTED AT THIS TIME. PT IN WILL CONTINUE TO CARE FOR AND MONITOR.
[2018-10-12] MEDS ORDERED: TPN PER PHARMACY IV NR ×9 (20:00)
--- NOTE | 2018-10-12 21:07 | NUR ---
PT DENIES PAIN AT THIS TIME PT IS SITTING IN BED WATCHING TV. NO SS OF DISTRESS NOTED AT THIS TIME. PT DENIES PAIN. VS WNL. FALL AND SAFETY MEASURES ARE IN PLACE. WILL CONTINUE TO CARE FOR AND MONITOR.
--- NOTE | 2018-10-12 22:00 | NUR ---
PT BM PT HAD BM. PT WAS ASSISTED WITH HYGIENE AND REPOSITIONING. PT HAS OGT IN PLACE CONNECTED TO LIS, PT DENIES WANTING ORAL CARE AT THIS TIME.
[2018-10-12] MEDS: fentaNYL Drip 2500mCg/250mlNS 250 ML IV SCH (22:16)
--- NOTE | 2018-10-12 22:50 | NUR ---
PT COMPLAINS OF PAIN PT STATES PAIN IS 7/10. PRESCRIBED MEDICATION ADMINISTERED. WILL REASSES.
[2018-10-12] MEDS: MIDAZOLAM DRIP 50 mg/50mL 50 ML IV SCH (23:58)
[2018-10-13] VITALS (84 sets, daily range): BP systolic 90–151; BP diastolic 24–95
[2018-10-13] MEDS ORDERED: VANCOMYCIN 1GM/250ML 250 ML IV ONE (00:11)
[2018-10-13] MEDS: MEROPENEM 1GM IVPB 100 ML IV SCH ×3 (01:00→16:42)
--- NOTE | 2018-10-13 05:00 | NUR ---
pt refused a bed bath. pt refused oral care. pt stated maybe in the morning after breakfast. pt was informed she is npo. pt still said no thank you i dont want to bathe or oral care.
[2018-10-13] MEDS: InsuLIN REG 1unit/0.01ml Soln (100units/ml) SC SCH ×4 (06:00→16:49)
[2018-10-13] MEDS: ACCU-CHEK COMFORT CURVE STRIP VI SCH ×4 (06:00→16:49)
[2018-10-13] MEDS: D5W/SOD CHL 0.45% 1,000 ML IV SCH ×2 (06:40→16:39)
--- NOTE | 2018-10-13 07:10 | NUR ---
HOSPITALIST AT BEDSIDE THIS NURSE HAS NOT RECEIVED REPORT FROM DAY SHIFT RN, BOTH RN'S ACCOMPANIED DR Flip MERCEDES INTO PATIENT'S ROOM. DR MERCEDES UPDATED ON PATIENT'S STATUS OVERNIGHT BY RONNIE MALCOLM, BERNADINE AND CONTINUOUS BM ONE DAY AFTER GASTROGRAFIN ADMINISTRATION. ORDERS RECEIVED TO SEND STOOL SAMPLE FOR C-DIFF AND OK TO START HOME PO MEDICATIONS. DR MERCEEDS NOTIFIED THAT SURGEON, DR ESPINOSA ORDERED NPO UNTIL FURTHER NOTICE, DR MERCEDES VERBALIZED UNDERSTANDING AND ORDERED ATIVAN 0.5 Q6H IV PRN FOR ANXIETY AND OK TO DOWNGRADE TO TELE ONCE PATIENT IS OFF LEVOPHED. ORDERS WILL BE CARRIED OUT.
--- NOTE | 2018-10-13 07:12 | NUR ---
report given to day rn care endorsed to day rnfrank
--- NOTE | 2018-10-13 07:30 | NUR ---
Opening Shift Note Assumed care of patient, awake, alert and oriented. No S/S of distress/SOB or pain noted or reported by patient. Patient instructed on plan of care after speaking with hospitalist, patient verbalized understanding. VSS and documented. South patent and draining to gravity, patient currently on 2 liters oxygen via nasal cannula. Fall and safety precautions in place, call light within reach. Patient remains NPO per Dr. Espinal's orders, OGT patent and draining yellow color secretion to LIS. Will monitor patient for changes Q1hr and PRN.
[2018-10-13] MEDS: FAMOTIDINE (10MG/ML) 2ML VL IV SCH (09:50)
[2018-10-13] MEDS: SODIUM CHLOR 0.9% PF (SALINE LOCK) 10ML VIAL/SYR IV SCH ×2 (09:50→21:43)
[2018-10-13] MEDS: ENOXAPARIN SOD 40 MG/0.4 ML SYRINGE SC SCH (09:50)
--- NOTE | 2018-10-13 10:34 | NUR ---
BM/COMFORT PATIENT CLEANSED OF SMALL SOFT/BROWN STOOL. WOUND CARE TO RIGHT HIP DTI PERFORMED. PATIENT CLEANSED AND TOLERATED WELL. SAMPLE FOR C-DIFF COLLECTED AND WILL BE SENT TO LAB WITH REQUISITION.
[2018-10-13] MEDS: HYDROmorphone HCL 2 MG/ML VL IV PRN ×3 (11:25→20:18)
[2018-10-13] MEDS: VANCOMYCIN 750 MG in D5W 5% 250 ML IV SCH ×2 (11:27→23:04)
[2018-10-13 11:33] LABS: Anion Gap 7 (5-15); Blood Urea Nitrogen 15 mg/dL (7-18); Carbon Dioxide 32 mmol/L (21-32); Chloride 101 mmol/L (98-107); Glucose 107 mg/dL (74-106); Potassium 4.4 mmol/L (3.5-5.1); Sodium 140 mmol/L (136-145)
[2018-10-13 11:34] LABS: Alanine Aminotransferase 93 U/L (13-56); Albumin 1.4 g/dL (3.4-5.0); Alkaline Phosphatase 188 U/L (45-117); Aspartate Aminotransferase 131 U/L (15-37); Bilirubin, Total 0.4 mg/dL (0.2-1.0); Calcium 8.8 mg/dL (8.5-10.1); GFR African American 288 mL/min; GFR Non-African American 238 mL/min; Magnesium 2.4 mg/dL (1.6-2.6); Total Protein 6.1 g/dL (6.4-8.2)
--- NOTE | 2018-10-13 11:48 | NUR ---
Nutrition Follow-up Notes Wt.: 60.1 kg today. Pt's successfully extubated yesterday, on oxygen via nasal cannula, asleep, no immediate family member at bedside during round earlier. Pt's no signs of distress noted earlier, remains NPO with TPN @ 67 ml/hr providing 1550 kcal, 90 gms proteins, 1190 NPCs. Pt with adequate PN support d/t high initiation rate delivery of concentrated formula aeb current PN infusion meets 84% to 100% of est caloric needs and 98% to 123% of est protein needs. Noted pt's for active Podiatry consult. Est. Needs: 1550 kcal to 1850 kcal (25-30 kcal/kgBW), 73 gms to 92 gms pro (1.2-1.5 gms/kgBW d/t severe hypoalbuminemia). Will continue to monitor pertinent labs and reassess nutrient need prn Labs: Gluc 107 H, Cr 0.30 L, AST 131 H, ALT 93 H, ALP 185 H, Tpro 6.1 L, Alb 1.4 L, Prealb 4.6 L, Trig 248 H Skin: Bay scale 13, mod risk, DTI to ankle and hip per documentation supervisor. Pls refer to quarter section ironer's notes (10/08/18) for detail re: tx plans GI: Pt had 4x BM yesterday, on OGT to LIS had 100 ml of gastric drainage output this morning per documentation supervisor. PES: Altered nutrition related lab values r/t acute/chronic medical condition aeb hyperglycemia, low Cr, elev. Mg, LFTs and severe hypoalbuminemia Increase nutrient needs r/t current medical condition aeb intubated, sedated, severe hypoalbuminemia, NPO with PN support. Will continue to monitor NPO status, PN tolerance, skin status, pertinent labs and weight trend. F/u in 2 to 3 days. Rec.: 1.) If still NPO, continue with PN support that meets at least 75% of est nutrient needs. 2.) Advance gradually to oral diet when medically appropriate. 3.) Refer to RD for further nutrition education and weight monitoring upon discharged. 4.) Continue current plan of care
--- NOTE | 2018-10-13 13:50 | NUR ---
DR ESPINOSA AT BEDSIDE DISCUSSED PLAN OF CARE WITH PATIENT AT BEDSIDE, NO ORDERS RECEIVED AT THIS TIME, CONTINUE NPO STATUS.
--- NOTE | 2018-10-13 16:45 | NUR ---
PHONE CALL RECEIVED FROM PODIATRY DR DAVILA NOTIFIED THIS NURSE THAT "I REVIEWED FOOT X-RAYS AND NO SURGICAL INTERVENTION REQUIRED. FOLLOW-UP WITH DOCTOR OUTPATIENT.
[2018-10-13] MEDS: NOREPINEPHRINE 8 MG/250ML KIT 250 ML IV SCH (16:50)
--- NOTE | 2018-10-13 18:52 | NUR ---
CONTACT SURGEON/HOLD OGT DC DR ESPINOSA NOTIFIED OF TOTAL GASTRIC OUTPUT FOR AM SHIFT 650 MLS AND REASON FOR NOT DISCONTINUING OGT. DR ESPINOSA VERBALIZED UNDERSTANDING AND STATED TO HOLD OFF ON DISCONTINUING THE OGT.
[2018-10-13] MEDS ORDERED: TPN PER PHARMACY IV NR ×8 (20:00)
[2018-10-14] VITALS (80 sets, daily range): BP systolic 85–127; BP diastolic 32–98
[2018-10-14] MEDS: ACCU-CHEK COMFORT CURVE STRIP VI SCH ×4 (00:26→17:54)
[2018-10-14] MEDS: LORazepam 2MG/ML-1ML VIAL IV PRN ×3 (00:27→21:10)
[2018-10-14] MEDS: MEROPENEM 1GM IVPB 100 ML IV SCH ×3 (00:50→17:43)
[2018-10-14 04:22] LABS: Calcium 9.1 mg/dL (8.5-10.1); Magnesium 2.4 mg/dL (1.6-2.6); Potassium 4.3 mmol/L (3.5-5.1)
[2018-10-14 04:28] LABS: Albumin 1.4 g/dL (3.4-5.0); BUN/Creatinine Ratio 57.1; Bilirubin, Total 0.3 mg/dL (0.2-1.0); Phosphorus 3.1 mg/dL (2.5-4.90); Total Protein 5.5 g/dL (6.4-8.2)
[2018-10-14] MEDS: HYDROmorphone HCL 2 MG/ML VL IV PRN (04:50)
[2018-10-14] MEDS: InsuLIN REG 1unit/0.01ml Soln (100units/ml) SC SCH ×4 (05:49→17:53)
--- NOTE | 2018-10-14 08:00 | NUR ---
OPENING NOTE Received patient in bed resting with eyes closed, easily arousable to tactile/verbal stimuli, patient alert and oriented X4, follows commands, speech appropriate/clear. Sinus rhythm in the 80's on bedside monitor, pulses palpable on upper/lower extremities with no edema observed. Patient on room air and sating in the high 90's. Bowel sounds present in all quadrants with last bowel movement being 10/14/2018 per NOC nurse. South catheter draining to gravity clear yellow urine. PICC line to the right upper arm (TLC): good blood return and flushes easily infusing Levophed at 1mcg. SCD's on. No signs and symptoms of respiratory distress. Patient denies any pain at this moment. Call light within reach and bed at lowest position. Will continue to monitor patient closely.
[2018-10-14] MEDS: ENOXAPARIN SOD 40 MG/0.4 ML SYRINGE SC SCH (09:38)
[2018-10-14] MEDS: FAMOTIDINE (10MG/ML) 2ML VL IV SCH (09:43)
[2018-10-14] MEDS: SODIUM CHLOR 0.9% PF (SALINE LOCK) 10ML VIAL/SYR IV SCH ×2 (09:44→22:00)
--- NOTE | 2018-10-14 10:20 | NUR ---
ELIMINATION Patient had large brown soft bowel movement, abiodun care provided and complete linen change done with the assistance on Yadi community service director. Patient tolerated well.
--- NOTE | 2018-10-14 11:45 | NUR ---
MD Dr. Espinal at bedside updated on patient condition with no new orders obtained.
--- NOTE | 2018-10-14 11:48 | NUR ---
CT SCAN Patient connected to portable campus monitor and will be transporting patient to CT scan for procedure as ordered by MD accompanied by this RN and radiology technicians.
--- NOTE | 2018-10-14 12:10 | NUR ---
CT SCAN Returned from CT scan patient tolerated well and connected back to bedside monitor.
[2018-10-14] MEDS: VANCOMYCIN 750 MG in D5W 5% 250 ML IV SCH ×2 (12:24→23:36)
--- NOTE | 2018-10-14 16:30 | NUR ---
ELIMINATION Patient had bowel movement, abiodun care provided and partial linen change with the assistance of Outside Laborer Joscue. Patient tolerated well.
--- NOTE | 2018-10-14 17:36 | NUR ---
assessment Patients post discharge needs to be determined prior to discharge. Possible SNF placement. Addendum: 10/14/18 at 1737 by Torie TOLEDO Amended: Links added.
[2018-10-14] MEDS: D5W/SOD CHL 0.45% 1,000 ML IV SCH ×2 (17:42→22:40)
[2018-10-14] MEDS: NOREPINEPHRINE 8 MG/250ML KIT 250 ML IV SCH (19:58)
[2018-10-14] MEDS ORDERED: TPN PER PHARMACY IV NR ×8 (20:00)
[2018-10-15] VITALS (46 sets, daily range): BP systolic 71–126; BP diastolic 27–65
[2018-10-15] MEDS: MEROPENEM 1GM IVPB 100 ML IV SCH ×2 (01:20→07:07)
[2018-10-15] MEDS: InsuLIN REG 1unit/0.01ml Soln (100units/ml) SC SCH ×2 (06:00)
[2018-10-15] MEDS: ACCU-CHEK COMFORT CURVE STRIP VI SCH ×2 (06:00)
--- NOTE | 2018-10-15 08:00 | NUR ---
OPENING NOTE Received patient in bed resting with eyes closed, easily arousable to tactile/verbal stimuli, patient alert and oriented X4, follows commands, speech appropriate/clear. Sinus rhythm in the 80's on bedside monitor, pulses palpable on upper/lower extremities with no edema observed. Patient on room air and sating in the high 90's. Bowel sounds present in all quadrants with last bowel movement being 10/15/2018 per NOC nurse. South catheter draining to gravity clear yellow urine. PICC line to the right upper arm (TLC): flushes easily infusing. SCD's on. No signs and symptoms of respiratory distress. Patient denies any pain at this moment. Call light within reach and bed at lowest position. Will continue to monitor patient closely.
[2018-10-15] MEDS: LORazepam 2MG/ML-1ML VIAL IV PRN (08:34)
[2018-10-15 09:30] LABS: Albumin 1.5 g/dL (3.4-5.0); Anion Gap 8 (5-15); Blood Urea Nitrogen 21 mg/dL (7-18); Calcium 8.7 mg/dL (8.5-10.1); Carbon Dioxide 27 mmol/L (21-32); Chloride 106 mmol/L (98-107); Glucose 102 mg/dL (74-106); Magnesium 2.3 mg/dL (1.6-2.6); Potassium 4.4 mmol/L (3.5-5.1); Sodium 141 mmol/L (136-145)
--- NOTE | 2018-10-15 09:45 | NUR ---
ELIMINATION Patient had small brown soft bowel movement, abiodun- care provided and partial linen change. Patient tolerated well.
[2018-10-15] MEDS: FAMOTIDINE (10MG/ML) 2ML VL IV SCH (10:19)
[2018-10-15] MEDS: ENOXAPARIN SOD 40 MG/0.4 ML SYRINGE SC SCH (10:19)
[2018-10-15] MEDS: SODIUM CHLOR 0.9% PF (SALINE LOCK) 10ML VIAL/SYR IV SCH (10:21)
--- NOTE | 2018-10-15 10:30 | NUR ---
ELIMINATION Patient requested to get out of bed to use bathroom informed patient she can not get out of bed at this time but she may use a bedpan. Patient was able to use bedpan and had a small loose brown bowel movement. [place]-care provided. Patient tolerated well.
[2018-10-15 10:57] LABS: Alkaline Phosphatase 225 U/L (45-117); BUN/Creatinine Ratio 61.8; GFR African American 249 mL/min; GFR Non-African American 206 mL/min
[2018-10-15 10:58] LABS: Alanine Aminotransferase 356 U/L (13-56); Aspartate Aminotransferase 435 U/L (15-37); Bilirubin, Total 0.3 mg/dL (0.2-1.0); Total Protein 5.9 g/dL (6.4-8.2)
[2018-10-15 11:27] LABS: Phosphorus 2.9 mg/dL (2.5-4.90)
--- NOTE | 2018-10-15 11:30 | NUR ---
MD Dr. Sheikh at bedside updated on patient condition with new orders, this RN to input into system. MD spoke to patient regarding plan of care and questions/concerns answered by MD. Patient asked MD if she could have something to eat,MD stated " she is unable to eat at this time secondary to the hole in your belly." Patient got upset with MD 's answer and then asked when she will be going home MD states " it could be two days or a week it depends on your recovery." Patient got extremely upset and told MD that she was going home. MD explained her condition and that is was not singh to leave the hospital until he has discharged her. Patient continued to tell MD that she was going to go without his permission. MD aware of patient decision to go AMA.
--- NOTE | 2018-10-15 11:55 | NUR ---
AMA CONSENT Dr. Quintanilal spoke to patient again regarding possible outcomes if she left, patient was not hearing it. MD and patient both signed AMA consent.
--- NOTE | 2018-10-15 12:00 | NUR ---
LINES PULLED South catheter discontinued with catheter intact with output of 600 clear yellow urine, PICC line pulled out and site dressed with gauze and kerlix and OG tube pulled out with output of 450 dark green bile. Patient tolerated well.
--- NOTE | 2018-10-15 12:10 | NUR ---
DISCHARGE Patient lingering in the room informed patient she has to go to the lobby to wait for her ride. Patient was able to get up and walk on her own with limited mobility to the left foot. Security meet her half way out to escort her to the lobby per beet end supervisor Jelly.
[2018-10-15] MEDS ORDERED: CLINIMIX PER PHARMACY IV NR ×6 (20:00)
== END 2018-10-15 12:28 | disposition left against medical advice (07) | DRG 720 ==
LOC: EDBD 14:00 → ER 14:03 → TELE 14:04 → ICU WEST 17:35
PROVIDERS: ADMIT Specialist; ATTEND Specialist
PROC: 5A1955Z Respiratory Ventilation, Greater than 96 Consecutive Hours (ICD-10-PCS; principal; 2018-10-07)
PROC: 0BH17EZ Insertion of Endotracheal Airway into Trachea, Via Natural or Artificial Opening (ICD-10-PCS; 2018-10-07)
DX: A41.9 Sepsis, unspecified organism (principal); J96.00 Acute respiratory failure, unspecified whether with hypoxia or hypercapnia; E43 Unspecified severe protein-calorie malnutrition; R65.21 Severe sepsis with septic shock; K63.1 Perforation of intestine (nontraumatic); K56.609 Unspecified intestinal obstruction, unspecified as to partial versus complete obstruction; N17.9 Acute kidney failure, unspecified; E87.2 Acidosis; F12.10 Cannabis abuse, uncomplicated; F15.10 Other stimulant abuse, uncomplicated; Z53.21 Procedure and treatment not carried out due to patient leaving prior to being seen by health care provider; E87.6 Hypokalemia; I44.7 Left bundle-branch block, unspecified; K52.9 Noninfective gastroenteritis and colitis, unspecified; J44.9 Chronic obstructive pulmonary disease, unspecified; Z88.0 Allergy status to penicillin; Z88.8 Allergy status to other drugs, medicaments and biological substances; Z86.73 Personal history of transient ischemic attack (TIA), and cerebral infarction without residual deficits; Z68.22 Body mass index [BMI] 22.0-22.9, adult
CPT/HCPCS: 36415; 36569; 36600; 71045; 73620; 74150; 74176; 74177; 80053; 80202; 80307; 81001; 82040; 82150; 82805; 82962; 83605; 83690; 83735; 84100; 84478; 85007; 85025; 85027; 85610; 85730; 87040; 87081; 87086; 87493; 93005; 94002; 94003; 96361; 96374; 96375; G0378; J0330; J1815; J2185; J2250; J2405; J2704; J3480; J3490; J7060; J7131

== ENCOUNTER 2019-07-27 19:52 | Emergency (ER) | payer MEDICAID ==
[~2019-07-27] VITALS: Ht 157.5 cm; Wt 40.8 kg
[~2019-07-27 19:52] MED LIST changes: +CYCL10TA6 PO; -CYCL1TAB18 PO; +DIPH25CA66 PO; +DIVA500T13 PO; -DIVA500T59 PO; -HYDR-4683 PO; +HYDR-4833 PO; +LEVO500T21 PO; +METR500T PO; +MIRT30TA PO; -QUET25TA37 PO; +QUET400T PO; +TEMA15CA91 PO
[2019-07-27] MEDS ORDERED: KETOROLAC TROMETH 15 mg/ml 1ML VL IV ONE (21:00)
[2019-07-27] MEDS ORDERED: MORPHINE SULFATE 10 MG/ML INJ 1ML SDV IV ONE (21:00)
[2019-07-27] MEDS ORDERED: ONDANSETRON HCL 4 MG/2 ML VIAL IV ONE (21:00)
[2019-07-27] MEDS ORDERED: SODIUM CHLORIDE 0.9% 500 ML IV ONE (21:00)
[2019-07-27 21:07] LABS: Basophils # (auto) 0.1 10 ^3/uL (0-0.2); Eosinophils # (auto) 0.2 10 ^3/uL (0-0.8); Eosinophils % (auto) 3.3 % (0.0-7.0); Hematocrit 33.9 % (36.0-46.0); Hemoglobin 11.1 g/dL (12.2-16.2); Lymphocytes # (auto) 3.3 10 ^3/uL (0.4-5.4); Lymphocytes % (auto) 50.2 % (10.0-50.0); Mean Corpuscular Hemoglobin 29.8 pg (28.0-32.0); Mean Corpuscular Hgb Conc. 32.8 g/dL (32.0-36.0); Mean Corpuscular Volume 90.7 fL (80.0-100.0); Monocytes # (auto) 0.4 10 ^3/uL (0-1.3); Monocytes % (auto) 6.6 % (0.0-12.0); Neutrophils # (auto) 2.6 10 ^3/uL (1.6-8.6); Neutrophils % (auto) 38.9 % (37.0-80.0); Nucleated Red Blood Cells % 0.1 %; Platelet Count (auto) 133 10^3/uL (140-450); Red Blood Cells 3.74 10^6/uL (4.0-5.20); Red Cell Distribution Width 15.4 % (11.8-14.3); White Blood Cell 6.6 10^3/uL (4.4-10.8)
[2019-07-27 21:21] LABS: Albumin 2.8 g/dL (3.4-5.0); Anion Gap 8 (5-15); Blood Urea Nitrogen 16 mg/dL (7-18); Calcium 8.5 mg/dL (8.5-10.1); Carbon Dioxide 22 mmol/L (21-32); Chloride 109 mmol/L (98-107); Glucose 92 mg/dL (74-106); Potassium 3.9 mmol/L (3.5-5.1); Sodium 139 mmol/L (136-145)
[2019-07-27 21:23] LABS: Alanine Aminotransferase 17 U/L (13-56); Aspartate Aminotransferase 10 U/L (15-37); BUN/Creatinine Ratio 23.9; GFR African American 114 mL/min; GFR Non-African American 94 mL/min
[2019-07-27 21:28] LABS: Alkaline Phosphatase 71 U/L (45-117); Bilirubin, Total 0.1 mg/dL (0.2-1.0); Total Protein 6.2 g/dL (6.4-8.2)
[2019-07-27] MEDS ORDERED: KETOROLAC TROMETH 30 MG/ML 1ML VIAL ONE (21:56)
[2019-07-28 02:00] VITALS: BP 112/59
== END 2019-07-28 02:25 | disposition home or self-care (01) ==
LOC: EDBD 19:52 → ER 19:55
DX: R06.02 Shortness of breath (principal); B34.9 Viral infection, unspecified; F17.210 Nicotine dependence, cigarettes, uncomplicated; F12.10 Cannabis abuse, uncomplicated; F15.10 Other stimulant abuse, uncomplicated; J44.9 Chronic obstructive pulmonary disease, unspecified; Z98.51 Tubal ligation status; Z20.828 Contact with and (suspected) exposure to other viral communicable diseases
CPT/HCPCS: 36415; 71045; 80053; 82728; 83880; 84484; 85025; 86141; 87070; 87635; 87804; 87880; 93005; 96374; 96375; 99001; 99285; J1885; J2270; J2405; J7040

== ENCOUNTER 2019-11-07 12:49 | Emergency (ER) | payer MEDICARE, MEDICAID ==
[~2019-11-07] VITALS: Ht 157.5 cm; Wt 54.4 kg
[2019-11-07] MEDS ORDERED: NALOXONE HCL 0.4 MG/ML VIAL IV ONE (13:15)
[2019-11-07 14:00] LABS: Basophils # (auto) 0 10 ^3/uL (0-0.2); Basophils % (auto) 0.3 % (0.0-2.0); Eosinophils # (auto) 0 10 ^3/uL (0-0.8); Eosinophils % (auto) 0.2 % (0.0-7.0); Hematocrit 38.4 % (36.0-46.0); Hemoglobin 12.1 g/dL (12.2-16.2); Lymphocytes # (auto) 1.5 10 ^3/uL (0.4-5.4); Lymphocytes % (auto) 19.3 % (10.0-50.0); Mean Corpuscular Hemoglobin 29.8 pg (28.0-32.0); Mean Corpuscular Hgb Conc. 31.6 g/dL (32.0-36.0); Mean Corpuscular Volume 94.5 fL (80.0-100.0); Monocytes # (auto) 1.3 10 ^3/uL (0-1.3); Monocytes % (auto) 15.9 % (0.0-12.0); Neutrophils # (auto) 5.1 10 ^3/uL (1.6-8.6); Neutrophils % (auto) 64.3 % (37.0-80.0); Platelet Count (auto) 236 10^3/uL (140-450); Red Blood Cells 4.07 10^6/uL (4.0-5.20); Red Cell Distribution Width 15.4 % (11.8-14.3); White Blood Cell 7.9 10^3/uL (4.4-10.8)
[2019-11-07 14:20] LABS: Alanine Aminotransferase 12 U/L (13-56); Albumin 2.8 g/dL (3.4-5.0); Anion Gap 3 (5-15); Aspartate Aminotransferase 16 U/L (15-37); BUN/Creatinine Ratio 39.7; Blood Urea Nitrogen 31 mg/dL (7-18); Calcium 9.1 mg/dL (8.5-10.1); Carbon Dioxide 26 mmol/L (21-32); Chloride 105 mmol/L (98-107); GFR African American 95 mL/min; GFR Non-African American 79 mL/min; Glucose 110 mg/dL (74-106); Potassium 4.3 mmol/L (3.5-5.1); Sodium 134 mmol/L (136-145)
[2019-11-07 14:23] LABS: Alkaline Phosphatase 101 U/L (45-117); Bilirubin, Total 0.2 mg/dL (0.2-1.0); Total Protein 7.2 g/dL (6.4-8.2)
[2019-11-07 14:23] LABS: Urine Bacteria FEW /hpf (None Seen); Urine Blood Negative /uL (Negative); Urine Hyaline Cast FEW /lpf (0 - 2); Urine Specific Gravity 1.013 (1.001-1.035); Urine WBC <1 /hpf (0 - 5)
[2019-11-07] MEDS ORDERED: MIDAZOLAM DRIP 50 mg/50mL 50 ML IV SCH (14:34)
[2019-11-07] MEDS ORDERED: ETOMIDATE (2MG/ML) 20ML VIAL IV ONE (14:45)
[2019-11-07] MEDS ORDERED: SUCCINYLCHOLINE CHLORIDE 20 MG/ML 10ML VIAL IV ONE (14:45)
[2019-11-07 14:48] LABS: Amphetamine Screen, Urine POSITIVE (NEGATIVE); Barbiturate Scree,Urine NEGATIVE (NEGATIVE); Cannabinoid Screen, Urine NEGATIVE (NEGATIVE)
[2019-11-07 14:55] LABS: Alcohol, Urine < 3.0 mg/dL (0-10); Benzodiazephine Screen, Urine POSITIVE (NEGATIVE); Cocaine Screen, Urine NEGATIVE (NEGATIVE); Opiate Scree,Urine NEGATIVE (NEGATIVE); Phencyclidine Screen, Urine NEGATIVE (NEGATIVE)
[2019-11-07 15:03] VITALS: BP 180/87
== END 2019-11-07 15:43 | disposition short-term general hospital (02) ==
LOC: EDUNIT# 12:49 → EDBD 12:49 → ER 12:49
DX: S06.300A Unspecified focal traumatic brain injury without loss of consciousness, initial encounter (principal); S02.85XA Fracture of orbit, unspecified, initial encounter for closed fracture; G93.41 Metabolic encephalopathy; I25.2 Old myocardial infarction; I10 Essential (primary) hypertension; J44.9 Chronic obstructive pulmonary disease, unspecified; M19.90 Unspecified osteoarthritis, unspecified site; F17.210 Nicotine dependence, cigarettes, uncomplicated; F12.10 Cannabis abuse, uncomplicated; F15.10 Other stimulant abuse, uncomplicated; Z88.0 Allergy status to penicillin; Z98.51 Tubal ligation status; X58.XXXA Exposure to other specified factors, initial encounter; Y93.89 Activity, other specified; Y92.89 Other specified places as the place of occurrence of the external cause; Y99.8 Other external cause status
CPT/HCPCS: 31500; 36415; 70450; 70486; 72125; 72192; 73090; 73100; 80053; 80307; 80320; 81001; 85025; 96374; 99291; J0330; J2250; J2310; 93005

== ENCOUNTER 2020-02-26 17:09 | Emergency (ER) | payer MEDICARE, MEDICAID ==
[~2020-02-26] VITALS: Ht 177.8 cm; Wt 65.8 kg
[2020-02-26] MEDS ORDERED: SODIUM CHLORIDE 0.9% 1,000 ML IV ONE ×2 (19:45→23:45)
[2020-02-26 22:05] LABS: Basophils # (auto) 0 10 ^3/uL (0-0.2); Basophils % (auto) 0.3 % (0.0-2.0); Eosinophils # (auto) 0.3 10 ^3/uL (0-0.8); Eosinophils % (auto) 4.2 % (0.0-7.0); Hematocrit 31.6 % (36.0-46.0); Hemoglobin 10.3 g/dL (12.2-16.2); Lymphocytes # (auto) 2.6 10 ^3/uL (0.4-5.4); Lymphocytes % (auto) 38.6 % (10.0-50.0); Mean Corpuscular Hgb Conc. 32.5 g/dL (32.0-36.0); Mean Corpuscular Volume 92.1 fL (80.0-100.0); Monocytes # (auto) 0.7 10 ^3/uL (0-1.3); Monocytes % (auto) 10.1 % (0.0-12.0); Neutrophils # (auto) 3.2 10 ^3/uL (1.6-8.6); Neutrophils % (auto) 46.8 % (37.0-80.0); Platelet Count (auto) 230 10^3/uL (140-450); Red Blood Cells 3.43 10^6/uL (4.0-5.20); Red Cell Distribution Width 13.9 % (11.8-14.3); White Blood Cell 6.8 10^3/uL (4.4-10.8)
[2020-02-26 22:23] LABS: INR 1.07 (0.9-1.15); Partial Thromboplastin Time 34.5 sec (23.0-31.2)
[2020-02-26 22:27] LABS: Albumin 2.4 g/dL (3.4-5.0); Anion Gap 6 (5-15); Blood Alcohol < 3.0 mg/dL (0-5); Blood Urea Nitrogen 14 mg/dL (7-18); Calcium 7.9 mg/dL (8.5-10.1); Carbon Dioxide 24 mmol/L (21-32); Chloride 115 mmol/L (98-107); Glucose 89 mg/dL (74-106); Magnesium 2.2 mg/dL (1.6-2.6); Potassium 3.8 mmol/L (3.5-5.1); Sodium 145 mmol/L (136-145)
[2020-02-26 22:34] LABS: Alanine Aminotransferase 17 U/L (13-56); Alkaline Phosphatase 72 U/L (45-117); Aspartate Aminotransferase 16 U/L (15-37); BUN/Creatinine Ratio 21.2; Bilirubin, Total 0.1 mg/dL (0.2-1.0); GFR African American 116 mL/min; GFR Non-African American 96 mL/min; Total Protein 5.7 g/dL (6.4-8.2)
[2020-02-27 06:00] VITALS: BP 101/47
== END 2020-02-27 06:25 | disposition home or self-care (01) ==
LOC: EDBD 17:09 → ER 17:11
DX: R41.82 Altered mental status, unspecified (principal); F15.10 Other stimulant abuse, uncomplicated; I10 Essential (primary) hypertension; E78.5 Hyperlipidemia, unspecified; Z79.899 Other long term (current) drug therapy; Z88.0 Allergy status to penicillin
CPT/HCPCS: 36415; 70450; 71045; 72125; 80053; 80320; 83605; 83735; 83880; 84484; 85025; 85379; 85610; 85730; 87040; 96360; 96361